=== PATIENT | female | born 1990 | race Caucasian/White ===

== ENCOUNTER 2017-05-27 17:56 | Emergency (ER) | payer MEDICAID ==
[~2017-05-27] VITALS: Ht 167.6 cm; Wt 59.0 kg
[~2017-05-27 17:56] MED LIST: GABA300 PO; THERM PO
[2017-05-27 17:58] VITALS: BP 134/82; PULSE 75; RESP 15; TEMP 97.7; O2SAT 98
--- NOTE | 2017-05-27 18:41 | PD ---
HPI Chief Complaint: Laceration/Skin Injury Time Seen by Provider: 18:41 Travel History International Travel<30 days: No Contact w/Intl Traveler<30days: No Traveled to known affect area: No History of Present Illness HPI 27-year-old male presents emergency Department with complaint of a laceration to the medial right foot just below the first metatarsal after dropping a can of beans on it slicing her foot. Unknown tetanus status. Denies paresthesias, loss of sensation, decreased range of motion, decreased strength to the affected foot. Does not take any medications to alleviate her symptoms. Went to urgent care prior to coming here and was told to come to the emergency department. Bandages is in place and bleeding is controlled. No known allergies. Has no medical complaints. No other modifying factors or associated signs and symptoms. PFSH Past Medical History Autoimmune Disease: No Anxiety: Yes Depression: Yes Heart Rhythm Problems: No Cancer: No Cardiovascular Problems: Yes (ENDOCARDITIS) Cerebrovascular Accident: No Diminished Hearing: No Endocrine: No Genitourinary: Yes Headaches: Yes Immune Disorder: No Musculoskeletal: Yes Neurologic: Yes (CHAIRA 1 MALFORMATION) Psychiatric: Yes (ANXIETY) Reproductive: No Respiratory: No Immunizations Current: Yes Migraines: Yes Seizures: Yes ?: Not Menopausal: No : 4 Para: 1 Miscarriage: 3 Tubal Ligation: Yes Past Surgical History Abdominal Surgery: No Cardiac Surgery: No Ear Surgery: No Endocrine Surgery: No Eye Surgery: No Genitourinary Surgery: No Gynecologic Surgery: No Joint Replacement: No Oral Surgery: No Pacemaker: No Thoracic Surgery: No Other Surgery: Yes (RODS & SCREWS IN RT SHOULDER/RT THUMB) Social History Alcohol Use: No Tobacco Use: Yes Substance Use: Yes ( IV DRUG ABUSE DILAUDID, 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 Medial aspect of right foot just below the first toe with approximately 2-1/2 cm laceration; bleeding controlled. HEAD: Atraumatic. Normocephalic. EYES: Pupils equal and round. No scleral icterus. No injection or drainage. ENT: Mucosa pink and moist. Airway patent. NECK: Trachea midline. CARDIOVASCULAR: Regular rate. RESPIRATORY: No accessory muscle use. GASTROINTESTINAL: Flat. MUSCULOSKELETAL: Right first toe is with full range of motion sensory intact; without tenderness on palpation to the first metatarsal area; without erythema, edema. No obvious deformities. No clubbing. No cyanosis. No edema. NEUROLOGICAL: Awake and alert. Oriented 3. No obvious cranial nerve deficits. Motor grossly within normal limits. Normal speech. PSYCHIATRIC: Appropriate mood and affect; insight and judgment normal. Data Data Last Documented VS Vital Signs Date Time Temp Pulse Resp B/P (MAP) Pulse Ox O2 Delivery O2 Flow Rate FiO2 05/27/17 20:24 78 20 122/74 (90) 99 05/27/17 17:58 97.7 Orders Orders Foot, Complete ([id number]) (05/27/17 18:40) Tetanus/Diphtheria Tox Adult (Tetanus/Di (05/27/17 18:45) Lidocaine 1% Inj (50 Ml) (Xylocaine 1% I (05/27/17 18:45) Ibuprofen (Motrin) (05/27/17 18:45) Shoe Post Op (05/27/17 ) Crutches (05/27/17 20:03) Shoe Cast (05/27/17 ) MDM Medical Decision Making Medical Screen Exam Complete: Yes Emergency Medical Condition: Yes Medical Record Reviewed: Yes Differential Diagnosis Laceration, contusion, abrasion, foot fracture Narrative Course 27-year-old female physical exam consistent with laceration to the right medial foot just below the first toe. Tetanus updated in the ER. Ibuprofen ordered. I will obtain foot x-ray to rule out acute fracture. Right foot x-ray ordered. See BLANCA Bazan's note for laceration repair. Right foot x-ray negative for acute findings. Keflex and ibuprofen prescribed for home. Instructed patient to follow up with primary care provider. Patient verbalizes understanding and agreement with treatment plan. Patient is medically cleared and stable for discharge. Discussed reasons to return to the emergency department. Patient agrees with treatment plan. The patients vital signs are stable and the patient is stable for outpatient follow-up and treatment. Patient discharged home, stable and in no acute distress. Diagnosis Primary Impression: Foot laceration Qualified Codes: S91.311A - Laceration without foreign body, right foot, initial encounter Referrals: [facility] Primary Care Physician Patient Instructions: Care For Your Stitches (ED), General Instructions, Laceration (ED) Departure Forms: Tests/Procedures, Work Release Enter return to work date: May 31, 2017 Additional Instructions: Keep area clean and dry Limit right foot activity to decrease risk of sutures coming undone done; use sling for support and to decrease activity Ibuprofen or Tylenol as directed and as needed for pain and inflammation Ice pack to area as needed to decrease pain Return to the emergency department or follow-up with primary care provider in 7- 10 days for suture removal Follow up with primary care provider within 2-4 days Return to the emergency department immediately with worsening of symptoms, particularly if reddened streaks up or down the affected extremity from the suture site, fever, numbness/tingling in the affected extremity, loss of sensation in the affected extremity, severe swelling of the affected Med/Other Pt SpecificInfo: Prescription(s) given Scripts Ibuprofen (Ibuprofen) 800 Mg Tab 800 MG PO Q6HR Y for PAIN, #30 TAB 0 Refills Prov: Florecita Escalante 05/27/17 Cephalexin (Keflex) 500 Mg Cap 500 MG PO Q8H for Infection for 7 Days, #30 CAP 0 Refills Prov: Florecita Escalante 05/27/17 Disposition: 01 DISCHARGE HOME Condition: Stable Florecita Escalante May 27, 2017 18:41
[2017-05-27] MEDS ORDERED: TETANUS/DIPHTHERIA TOXOID ADULT 0.5 ML VIAL IM ONE (18:45)
[2017-05-27] MEDS ORDERED: LIDOCAINE HCL 1% 50 ML VIAL INFIL ONE (18:45)
[2017-05-27] MEDS ORDERED: IBUPROFEN 800 MG TAB PO ONE (18:45)
[2017-05-27] MEDS ORDERED: IBUP800T23 PO (18:49)
[2017-05-27] MEDS ORDERED: CEPH-460 PO (18:49)
--- NOTE | 2017-05-27 19:55 | RADRPT ---
EXAM DATE/TIME: 05/27/2017 19:21 [place] COMPARISON: No previous studies available for comparison. INDICATIONS : Laceration to right foot at medial portion of foot. MEDICAL HISTORY : None. SURGICAL HISTORY : None. ENCOUNTER: Initial ACUITY: 1 day PAIN SCORE: 0/10 LOCATION: Right foot FINDINGS: Three view examination of the right foot demonstrates no soft tissue swelling, dislocation, or fractu re. The tarsal bones appear intact. The interphalangeal and metatarsophalangeal joints are intact. The calcaneus is intact. Bony mineralization is normal. CONCLUSION: 1. No acute bony abnormality. No radiopaque foreign body. Laceration medial foot. Vinay Pradhan MD on May 27, 2017 at 19:53 Board Certified Radiologist. This report was verified electronically.
--- NOTE | 2017-05-27 20:03 | PD ---
Physical Exam Date Seen by Provider: May 27, 2017 Time Seen by Provider: 20:01 Narrative For full history and physical examination please see previous provider's note. I assumed care of patient at change of shift. Data Data Last Documented VS Vital Signs Date Time Temp Pulse Resp B/P (MAP) Pulse Ox O2 Delivery O2 Flow Rate FiO2 05/27/17 17:58 97.7 75 15 134/82 (99) 98 Orders Orders Foot, Complete ([id number]) (05/27/17 18:40) Tetanus/Diphtheria Tox Adult (Tetanus/Di (05/27/17 18:45) Lidocaine 1% Inj (50 Ml) (Xylocaine 1% I (05/27/17 18:45) Ibuprofen (Motrin) (05/27/17 18:45) MDM Medical Record Reviewed: Yes Supervised Visit with NICK: No Narrative Course X-ray of the left foot is negative for bony abnormality. Please see procedure report for laceration repair. Patient was given a postop shoe and crutches. She was advised that sutures will need to be removed in 10-14 days. She was advised to keep area clean and dry, she was advised to avoid swimming. She was given wound care instructions as well as education on signs and symptoms of infection. Patient verbalized understanding of instructions. Patient stable for discharge. Procedures Procedure Narrative LACERATION LOCATION: Left foot adjacent to first MTP medially LENGTH: 3 cm NUMBER OF STITCHES/NEVILLE: 7 stitches REPAIR: The area of the laceration was prepped with Betadine and sterilely draped. The laceration was infiltrated with 1% lidocaine. The wound was copiously irrigated and explored without evidence of foreign body, tendon injury or neurovascular injury. The wound was closed using 4-0 Prolene. This was a 1 layer repair. A sterile dressing was applied. The patient was advised to keep the dressing clean and dry. Patient tolerated the procedure well. Diagnosis Primary Impression: Foot laceration Qualified Codes: S91.311A - Laceration without foreign body, right foot, initial encounter Referrals: [facility] Primary Care Physician Patient Instructions: General Instructions, Care For Your Stitches (ED), Laceration (ED) Departure Forms: Work Release, Enter return to work date: Tests/Procedures Additional Instruction: Keep area clean and dry Limit right foot activity to decrease risk of sutures coming undone done; use sling for support and to decrease activity Ibuprofen or Tylenol as directed and as needed for pain and inflammation Ice pack to area as needed to decrease pain Return to the emergency department or follow-up with primary care provider in 7- 10 days for suture removal Follow up with primary care provider within 2-4 days Return to the emergency department immediately with worsening of symptoms, particularly if reddened streaks up or down the affected extremity from the suture site, fever, numbness/tingling in the affected extremity, loss of sensation in the affected extremity, severe swelling of the affected Med/Other Pt SpecificInfo: Prescription(s) given Scripts Ibuprofen (Ibuprofen) 800 Mg Tab 800 MG PO Q6HR Y for PAIN, #30 TAB 0 Refills Prov: Florecita Escalante 05/27/17 Cephalexin (Keflex) 500 Mg Cap 500 MG PO Q8H for Infection for 7 Days, #30 CAP 0 Refills Prov: Florecita Escalante 05/27/17 Disposition: 01 DISCHARGE HOME Condition: Stable Jo Ann Willard May 27, 2017 20:03
[2017-05-27 20:24] VITALS: BP 122/74
== END 2017-05-27 20:25 | disposition home or self-care (01) ==
LOC: NEPK 17:56
DX: S91.311A Laceration without foreign body, right foot, initial encounter (principal); I38 Endocarditis, valve unspecified; F41.9 Anxiety disorder, unspecified; F32.9 Major depressive disorder, single episode, unspecified; G93.5 Compression of brain; R56.9 Unspecified convulsions; W22.8XXA Striking against or struck by other objects, initial encounter; Z23 Encounter for immunization; Z72.0 Tobacco use
CPT/HCPCS: 12002; 73630; 90471; 90714; 99283; E0113; L3260

== ENCOUNTER 2018-01-25 23:10 | Inpatient (IN) | END 2018-02-11 12:18 | disposition home health service (06) | DRG 871 | DX: A41.02 Sepsis due to Methicillin resistant Staphylococcus aureus (principal); I26.90 Septic pulmonary embolism without acute cor pulmonale; G93.5 Compression of brain; I76 Septic arterial embolism; I74.9 Embolism and thrombosis of unspecified artery; D69.6 Thrombocytopenia, unspecified; I07.9 Rheumatic tricuspid valve disease, unspecified; L03.114 Cellulitis of left upper limb; N39.0 Urinary tract infection, site not specified; F11.10 Opioid abuse, uncomplicated; F17.210 Nicotine dependence, cigarettes, uncomplicated; M25.512 Pain in left shoulder; B95.62 Methicillin resistant Staphylococcus aureus infection as the cause of diseases classified elsewhere; M79.602 Pain in left arm; R07.89 Other chest pain; R11.2 Nausea with vomiting, unspecified; R53.81 Other malaise; Z86.19 Personal history of other infectious and parasitic diseases ==

== ENCOUNTER 2018-07-06 05:35 | Inpatient (IN) ==
[2018-07-06] MEDS ORDERED: Vancomycin Inj 1,250 MG in Sodium Chlor 0.9% Inj 250 ML IV.SIG ONE (07:24)
[2018-07-06] MEDS ORDERED: Acetaminophen 325 MG Tablet PO ONE (07:24)
[2018-07-06] MEDS ORDERED: Piperacil/Tazo 4.5 GM Premix 4.5 GM/100 ML BAG IV.SIG STA (07:24)
[2018-07-06] MEDS ORDERED: Sod Chloride 0.9% Inj 1,000 ML IV.SIG SCH ×2 (07:30)
--- NOTE | 2018-07-06 08:28 | XR ---
EXAM DATE: 07/06/2018 7:24 AM EDT AGE/SEX: 28 years / Female INDICATIONS: Fever. CLINICAL DATA: This is the patient's initial encounter. Patient reports that signs and symptoms have been present for 1 day and indicates a pain score of 0/10. MEDICAL/SURGICAL HISTORY: None. None. COMPARISON: [facility] – [place], [place]ST SINGLE AP, 02/11/2018. . FINDINGS: Patchy airspace consolidation in the left mid to lower lung zone. The cardiomediastinal contours are unremarkable. Osseous structures are intact. CONCLUSION: 1. Patchy left mid to lower lung zone airspace consolidation concerning for pneumonia history of fev er. Electronically signed by: Tucker Mena MD 07/06/2018 8:27 AM EDT
[2018-07-06 08:56] LABS: Baso % (Auto) 0.4 % (0.0-2.0); Hematocrit 24.9 % (35.0-46.0); Hemoglobin 8.3 gm/dL (11.6-15.3); Lymph # (Auto) 1.1 th/mm3 (1.0-4.8); Lymph % (Auto) 8.9 % (9.0-44.0); Mean Corpuscular HGB Conc 33.2 % (32.0-36.0); Mean Corpuscular Hemoglobin 24.4 pg (27.0-34.0); Mean Corpuscular Volume 73.5 fL (80.0-100.0); Mean Platelet Volume 7.1 fL (7.0-11.0); Mono # (Auto) 0.5 th/mm3 (0.0-0.9); Mono % (Auto) 4.1 % (0.0-8.0); Neut # (Auto) 10.6 th/mm3 (1.8-7.7); Neut % (Auto) 86.6 % (16.0-70.0); Platelet Count 194 th/mm3 (150-450); Red Blood Count 3.39 mil/mm3 (4.00-5.30); Red Cell Distribution Width 16.6 % (11.6-17.2); White Blood Count 12.3 th/mm3 (4.0-11.0)
[2018-07-06 09:12] LABS: Activated Partial Thrombo Time 32.5 sec (24.3-30.1); INR 1.4 Ratio; Prothrombin Time 14.6 sec (9.8-11.6)
[2018-07-06 09:23] LABS: Albumin 2.1 g/dL (3.4-5.0); Anion Gap 13 meq/L (5-15); Aspartate Aminotransferase 25 U/L (15-37); Blood Urea Nitrogen 16 mg/dL (7-18); Calcium 8.1 mg/dL (8.5-10.1); Carbon Dioxide 23.3 meq/L (21.0-32.0); Chloride 95 meq/L (98-107); Glomerular Filtration Rate 66 mL/min (>89); Glucose,Random 107 mg/dL (74-106); Potassium 3.5 meq/L (3.5-5.1); Sodium 131 meq/L (136-145)
[2018-07-06 09:25] LABS: Alanine Aminotransferase 15 U/L (10-53)
[2018-07-06 09:28] LABS: Alkaline Phosphatase 125 U/L (45-117); Total Protein 8.4 g/dL (6.4-8.2)
[2018-07-06 09:37] LABS: Creatine Kinase 23 U/L (26-192)
[2018-07-06] MEDS ORDERED: Ibuprofen 600 MG Tablet PO ONE (09:42)
[2018-07-06 09:50] LABS: Bacteria,Urine Few /hpf; Bilirubin,Urine Negative (Negative); Clarity,Urine Hazy (Clear); Color,Urine Yellow (Yellw/Straw); Glucose,Urine (UA) Negative (Negative); Leukocyte Esterase,Urine Trace (Negative); Mucus,Urine Few /lpf (Occasional); Nitrite,Urine Positive (Negative); Specific Gravity,Urine 1.023 (1.002-1.035); Squamous Epithelial Cell,Urine <1 /hpf (0-5)
--- NOTE | 2018-07-06 10:09 | ED ---
HPI General Chief complaint: Medical Clearance Stated complaint: pain all over Time Seen by Provider: 07/06/18 07:09 Source: patient Mode of arrival: ambulatory Limitations: altered mental status History of Present Illness HPI narrative: Patient is a 28-year-old female who comes in complaining of not feeling well. Patient has history of IV drug abuse, has been admitted with septic pulmonary emboli in the past. She is not providing any history today. Related Data Home Medications Medication Instructions Recorded Confirmed No Known Home Medications 07/06/18 07/06/18 Allergies Allergy/AdvReac Type Severity Reaction Status Date / Time No Known Allergies Allergy Verified 07/06/18 08:55 Review of Systems ROS Unobtainable ROS Unobtainable: unobtainable due to mental status PMFSH Medical History Medical History Endocarditis (Acute) Family History Family History Other Osteoarthritis Social History Social History Substance History: Active Abuse Second Hand Smoke Exposure: Yes Smoking Status: Current every day smoker Tobacco Type: Cigarettes How Often Do You Have a Drink Containing Alcohol: Never Recent Travel [facility] within the Last 8 Weeks: No Recent Out of Country Travel within the Last 8 Weeks: No Immunization History Tetanus Immunization: Unsure Exam Narrative Exam Narrative: GENERAL: Awake and alert, not providing any information. She moans when you speak with her. SKIN: Focused skin assessment warm/dry. Track hart to both arms. No abscess or evidence of cellulitis. HEAD: Atraumatic. Normocephalic. EYES: Pupils equal and round. No scleral icterus. Extraocular movements intact. ENT: Mucous membranes pink and moist. NECK: Trachea midline. No JVD. CARDIOVASCULAR: Regular rate and rhythm. No murmur appreciated. RESPIRATORY: No accessory muscle use. Clear to auscultation. Breath sounds equal bilaterally. GASTROINTESTINAL: Abdomen soft, non-tender, nondistended. MUSCULOSKELETAL: No obvious deformities. No clubbing. No cyanosis. No edema. NEUROLOGICAL: Awake and alert, but does not answer questions. No obvious cranial nerve deficits. Motor grossly within normal limits. Course Initial Documented Vital Signs Temperature 98.9 F 07/06/18 05:39 Pulse Rate 123 H 07/06/18 05:39 Respiratory Rate 20 07/06/18 05:39 Blood Pressure 114/70 07/06/18 05:39 Pulse Oximetry 95 07/06/18 05:39 Last Documented Vital Signs Temperature 97.5 F L 07/06/18 13:38 Pulse Rate 85 07/06/18 13:38 Respiratory Rate 19 07/06/18 13:38 Blood Pressure 93/51 L 07/06/18 13:38 Pulse Oximetry 100 07/06/18 13:38 Medical Decision Making MDM Narrative Medical decision making narrative: Patient is a 28-year-old female who comes in due to feeling unwell. She is really not providing any history. IV established , labs sent. Labs show elevated white blood cell count. Chest x-ray is concerning for pneumonia. Urinalysis is positive for nitrates. Patient given IV fluids, vancomycin, Zosyn. Given Tylenol and ibuprofen. She will be admitted for further management. Medical Screen Exam Complete: Yes Emergency Medical Condition: Yes Differential Diagnosis Differential Diagnosis: Endocarditis versus sepsis versus pneumonia versus UTI Medical Records Medical records reviewed: Yes I reviewed the patient's medical records. Lab Data Lab results reviewed: Yes I reviewed the patient's lab results. Result diagrams: 07/06/18 08:39 07/06/18 08:39 POC Results POC Urine Results Negative Lab Results 07/06/18 07/06/18 07/06/18 Range/Units 08:39 08:39 08:39 WBC 12.3 H (4.0-11.0) th/mm3 RBC 3.39 L (4.00-5.30) mil/mm3 Hgb 8.3 L (11.6-15.3) gm/dL Hct 24.9 L (35.0-46.0) % MCV 73.5 L (80.0-100.0) fL MCH 24.4 L (27.0-34.0) pg MCHC 33.2 (32.0-36.0) % RDW 16.6 (11.6-17.2) % Plt Count 194 (150-450) th/mm3 MPV 7.1 (7.0-11.0) fL Neut % (Auto) 86.6 H (16.0-70.0) % Lymph % (Auto) 8.9 L (9.0-44.0) % Ida % (Auto) 4.1 (0.0-8.0) % Eos % (Auto) 0.0 (0.0-4.0) % Baso % (Auto) 0.4 (0.0-2.0) % Neut # (Auto) 10.6 H (1.8-7.7) th/mm3 Lymph # (Auto) 1.1 (1.0-4.8) th/mm3 Ida # (Auto) 0.5 (0.0-0.9) th/mm3 Eos # (Auto) 0.0 (0.0-0.4) th/mm3 Baso # (Auto) 0.0 (0.0-0.2) th/mm3 WBC Differential . Differential Comment Auto diff final PT 14.6 H (9.8-11.6) sec INR 1.4 Ratio APTT 32.5 H (24.3-30.1) sec Sodium 131 L (136-145) meq/L Potassium 3.5 (3.5-5.1) meq/L Chloride 95 L (98-107) meq/L Carbon Dioxide 23.3 (21.0-32.0) meq/L Anion Gap 13 (5-15) meq/L BUN 16 (7-18) mg/dL Creatinine 1.00 (0.50-1.00) mg/dL Estimated GFR 66 L (>89) mL/min Random Glucose 107 H (74-106) mg/dL Lactic Acid (0.4-2.0) mmol/L Calcium 8.1 L (8.5-10.1) mg/dL Total Bilirubin 0.6 (0.2-1.0) mg/dL AST 25 (15-37) U/L ALT 15 (10-53) U/L Alkaline Phosphatase 125 H (45-117) U/L Total Creatine Kinase 23 L (26-192) U/L Troponin I Less than 0.02 L (0.02-0.05) ng/mL Total Protein 8.4 H (6.4-8.2) g/dL Albumin 2.1 L (3.4-5.0) g/dL Urine Color (Yellw/Straw) Urine Clarity (Clear) Urine pH (5.0-8.5) Ur Specific [place] (1.002-1.035) Urine Protein (Neg-Trace) mg/dL Urine Glucose (UA) (Negative) mg/dL Urine Ketones (Negative) mg/dL Urine Occult Blood (Negative) Urine Nitrate (Negative) Urine Bilirubin (Negative) Urine Urobilinogen (Less than 2) mg/dL Ur Leukocyte Esterase (Negative) Urine RBC (0-3) /hpf Urine WBC (0-5) /hpf Ur Squamous Epith Cells (0-5) /hpf Urine Bacteria (None) /hpf Urine Mucus (Occasional) /lpf Micro UA Comment Ur Microscopic Review Urine Culture Comments 07/06/18 07/06/18 Range/Units 08:39 09:25 WBC (4.0-11.0) th/mm3 RBC (4.00-5.30) mil/mm3 Hgb (11.6-15.3) gm/dL Hct (35.0-46.0) % MCV (80.0-100.0) fL MCH (27.0-34.0) pg MCHC (32.0-36.0) % RDW (11.6-17.2) % Plt Count (150-450) th/mm3 MPV (7.0-11.0) fL Neut % (Auto) (16.0-70.0) % Lymph % (Auto) (9.0-44.0) % Ida % (Auto) (0.0-8.0) % Eos % (Auto) (0.0-4.0) % Baso % (Auto) (0.0-2.0) % Neut # (Auto) (1.8-7.7) th/mm3 Lymph # (Auto) (1.0-4.8) th/mm3 Ida # (Auto) (0.0-0.9) th/mm3 Eos # (Auto) (0.0-0.4) th/mm3 Baso # (Auto) (0.0-0.2) th/mm3 WBC Differential Differential Comment PT (9.8-11.6) sec INR Ratio APTT (24.3-30.1) sec Sodium (136-145) meq/L Potassium (3.5-5.1) meq/L Chloride (98-107) meq/L Carbon Dioxide (21.0-32.0) meq/L Anion Gap (5-15) meq/L BUN (7-18) mg/dL Creatinine (0.50-1.00) mg/dL Estimated GFR (>89) mL/min Random Glucose (74-106) mg/dL Lactic Acid 1.0 (0.4-2.0) mmol/L Calcium (8.5-10.1) mg/dL Total Bilirubin (0.2-1.0) mg/dL AST (15-37) U/L ALT (10-53) U/L Alkaline Phosphatase (45-117) U/L Total Creatine Kinase (26-192) U/L Troponin I (0.02-0.05) ng/mL Total Protein (6.4-8.2) g/dL Albumin (3.4-5.0) g/dL Urine Color Yellow (Yellw/Straw) Urine Clarity Hazy H (Clear) Urine pH 5.0 (5.0-8.5) Ur Specific [place] 1.023 (1.002-1.035) Urine Protein 30 H (Neg-Trace) mg/dL Urine Glucose (UA) Negative (Negative) mg/dL Urine Ketones Negative (Negative) mg/dL Urine Occult Blood Small H (Negative) Urine Nitrate Positive H (Negative) Urine Bilirubin Negative (Negative) Urine Urobilinogen Less than 2 (Less than 2) mg/dL Ur Leukocyte Esterase Trace H (Negative) Urine RBC 1 (0-3) /hpf Urine WBC 25 H (0-5) /hpf Ur Squamous Epith Cells <1 (0-5) /hpf Urine Bacteria Few H (None) /hpf Urine Mucus Few H (Occasional) /lpf Micro UA Comment Culture indicated Ur Microscopic Review Not Reportable Urine Culture Comments Culture indicated Imaging Data Radiologist's impression: Chest X-Ray 07/06/18 07:24 CONCLUSION: 1. Patchy left mid to lower lung zone airspace consolidation concerning for pneumonia history of fever. Discharge Plan Discharge Disposition Patient Disposition: 30 Still Patient Discharge Condition Condition: Stable Discharge Details Diagnosis: Sepsis, Urinary tract infection, Community acquired pneumonia Physicians Team ED Provider: Neetu Mcgill Primary Care Provider: Primary Care Ann Arciniega Attending Provider: Keenan Manley Discharge Interventions Interventions: ED Discharge Assessment Last Done: 07/06/18 12:50 Vital Signs Last Done: 07/06/18 10:38 Status ED Status: Left Department Discharge Information Discharge Date/Time: 07/06/18 12:56
[2018-07-06] MEDS ORDERED: Vancomycin Consult Pharmacy OTHER PRN (11:04)
[2018-07-06] MEDS: Sod Chloride 0.9% Inj 1,000 ML IV.CONT SCH ×2 (12:14→22:11)
[2018-07-06] MEDS: Enoxaparin Inj 40 MG/0.4 ML Syringe SQ SCH (12:15)
--- NOTE | 2018-07-06 12:22 | P.HPIM ---
History of Present Illness Primary Care Physician: No Primary Care Physician History of Present Illness: Mrs. Rapp is a 28-year-old female. She has a past history of IV drug abuse and a previous history of infective endocarditis. She came in secondary to pain in her joints. When I see her in the ER she is lethargic and provides no significant history. She is arousable and has a gag reflex. She has been found to have a urinary tract infection and pneumonia. She meets sepsis criteria. Due to her history of IV drug abuse and prior history of infective endocarditis, Suspicion for infective endocarditis should be present. No other complaints when seen. - Diagnosis (1) Sepsis (2) Urinary tract infection (3) Community acquired pneumonia Inpatient Certification: I certify that the inpatient services were ordered in accordance with Medicare regulations governing the order. This includes certification that hospital inpatient services are reasonable and necessary and in the case of services not specified as inpatient-only under 42 CFR 419.22(n), that they are appropriately provided as inpatient services in accordance to with the 2-midnight benchmark under 43 CFR 412.3(e) Estimated Total Length of Stay (Days): 3 Plans for Post Hospital Care: Home Review of Systems unobtainable due to mental condition, unobtainable due to mental status PMFSH - History History Provided By: Patient - Medical History Medical History: Medical History (Last Updated 07/06/18 @ 05:38 by Josselin Baker RN) Endocarditis - Family History Family History: Family History (Last Updated 07/06/18 @ 12:19 by Keenan Manley MD) Other Osteoarthritis - Tobacco History Tobacco Use In Past 30 Days: Yes Smoking Status: Current every day smoker Tobacco Type: Cigarettes - Alcohol History How Often Do You Have a Drink Containing Alcohol: Never - Travel History Recent Travel in the [place] Within the Last 8 Weeks: No Recent Travel Out of the Country Within the Last 8 Weeks: No - Immunization History Tetanus Immunization: Unsure Medications and Allergies Active Medications: Active Medications Acetaminophen (Tylenol) 500 mg PO Q6H PRN PRN Reason: PAIN 1-10 AND/OR FEVER >101F Al Hydroxide/Mg Hydroxide (Milk Of Magnesia Liq) 30 ml PO Q12H PRN PRN Reason: Mild Constipation Clonidine HCl (Catapres) 0.1 mg PO Q6H PRN PRN Reason: opioid withdraw Enoxaparin Sodium (Lovenox Inj) 40 mg SQ Q24H JASSON Last Admin: 07/06/18 12:15 Dose: 40 mg Sodium Chloride (Ns Inj) 1,000 mls @ 0 mls/hr IV.SIG .Q0M JASSON Last Infusion: 07/06/18 09:13 Dose: Infused Sodium Chloride (Ns Inj) 1,000 mls @ 0 mls/hr IV.SIG .Q0M JASSON Last Infusion: 07/06/18 09:45 Dose: Infused Sodium Chloride (Ns Inj) 1,000 mls @ 100 mls/hr IV.CONT .Q10H JASSON Last Admin: 07/06/18 12:14 Dose: 100 mls/hr Vancomycin/Sodium Chloride (Vancomycin Inj) 1 gm in 200 mls @ 200 mls/hr IV.SIG Q12H JASSON Piperacillin/Tazobactam/Dextrose (Zosyn 3.375 Gm Premix) 50 mls @ 100 mls/hr IV.SIG Q8H JASSON Lactobacillus Acidophilus (Lactinex) 1 tab PO TID JASSON Ondansetron HCl (Zofran Inj) 4 mg IV.PUSH Q6H PRN PRN Reason: NAUSEA OR VOMITING Pharmacy Profile Note (Vancomycin Consult Pharmacy) 1 each OTHER UNSCH PRN PRN Reason: Pharmacy to dose Allergies Allergy/AdvReac Type Severity Reaction Status Date / Time No Known Allergies Allergy Verified 07/06/18 08:55 Home Medications Medication Instructions Recorded Confirmed Type No Known Home Medications 07/06/18 07/06/18 History Exam Vital signs: Vital Signs 07/06/18 05:39 07/06/18 05:56 07/06/18 08:17 Temperature 98.9 F 99.0 F 100.4 F H Pulse Rate 123 H 117 H Respiratory Rate 20 20 Blood Pressure 114/70 124/62 Pulse Oximetry 95 100 07/06/18 08:55 07/06/18 08:56 07/06/18 09:16 Temperature 101.2 F H Pulse Rate 117 H 108 H Respiratory Rate 24 22 Blood Pressure 127/67 141/69 H Pulse Oximetry 98 98 98 07/06/18 10:38 Temperature 99.3 F Pulse Rate 95 H Respiratory Rate 24 Blood Pressure 123/60 Pulse Oximetry 98 Intake & Output 07/05/18 07/06/18 07/06/18 18:59 06:59 18:59 Intake Total 2362.5 / 2362.5 Balance 2362.5 / 2362.5 Weight 68.039 kg Intake: IV 2362.5 / 2362.5 Zosyn 4.5 GM Premix 4.5 gm In 100 / 100 100 ml @ 200 mls/hr IV.SIG STAT STA Rx#:[id number] NS Inj 1,000 ML @ Wide Open IV. 1999 / 1999 SIG .Q0M JASSON Rx#:[id number] Vancomycin Inj 1,250 MG In NS 262.5 / 262.5 Inj 250 ML @ 250 mls/hr IV.SIG ONCE ONE Rx#:[id number] Narrative: GENERAL: NAD, A&Ox0 HEAD: Normocephalic. NECK: Supple, trachea midline. No lymphadenopathy. EYES: No scleral icterus. No injection or drainage. CARDIOVASCULAR: Regular rate and rhythm without murmurs, gallops, or rubs. RESPIRATORY: Breath sounds equal bilaterally. No accessory muscle use. GASTROINTESTINAL: Abdomen soft, non-tender, nondistended. MUSCULOSKELETAL: No cyanosis, or edema. SKIN: Warm and dry. Possible track hart on feet. NEURO: No focal neurological deficits. Results - Labs CBC & Chem 7: 07/06/18 08:39 07/06/18 08:39 Labs: Short CBC 07/06/18 Range/Units 08:39 WBC 12.3 H (4.0-11.0) th/mm3 Hgb 8.3 L (11.6-15.3) gm/dL Hct 24.9 L (35.0-46.0) % Plt Count 194 (150-450) th/mm3 BMP 07/06/18 08:39 Sodium 131 L Potassium 3.5 Chloride 95 L Carbon Dioxide 23.3 BUN 16 Creatinine 1.00 Calcium 8.1 L Cardiac Enzymes 07/06/18 Range/Units 08:39 Total Creatine Kinase 23 L (26-192) U/L Troponin I Less than 0.02 L (0.02-0.05) ng/mL Liver Function 07/06/18 Range/Units 08:39 Total Bilirubin 0.6 (0.2-1.0) mg/dL AST 25 (15-37) U/L ALT 15 (10-53) U/L Alkaline Phosphatase 125 H (45-117) U/L Albumin 2.1 L (3.4-5.0) g/dL Urine 07/06/18 Range/Units 09:25 Urine Color Yellow (Yellw/Straw) Urine Clarity Hazy H (Clear) Urine pH 5.0 (5.0-8.5) Ur Specific [place] 1.023 (1.002-1.035) Urine Protein 30 H (Neg-Trace) mg/dL Urine Glucose (UA) Negative (Negative) mg/dL - Imaging Impressions Chest X-Ray 07/06/18 07:24 CONCLUSION: 1. Patchy left mid to lower lung zone airspace consolidation concerning for pneumonia history of fever. Caprini VTE Risk Assessment Caprini VTE Risk Assessment: Moderate/High Risk (score >= 2) Caprini Risk Assessment Model: Point Value = 1 Point Value = 2 Point Value = 3 Point Value = 5 Age 41-60 Minor surgery BMI > 25 kg/m2 Swollen legs Varicose veins or History of unexplained or recurrent spontaneous Oral contraceptives or hormone replacement Sepsis (< 1 month) Serious lung disease, including pneumonia (< 1 month) Abnormal pulmonary function Acute myocardial infarction Congestive heart failure (< 1 month) History of inflammatory bowel disease Medical patient at bed rest Age 61-74 Arthroscopic surgery Major open surgery (> 45 min) Laparoscopic surgery (> 45 min) Malignancy Confined to bed (> 72 hours) Immobilizing plaster cast Central venous access Age >= 75 History of VTE Family history of VTE Factor V Leiden Prothrombin [id number] Lupus anticoagulant Anticardiolipin antibodies Elevated serum homocysteine Heparin-induced thrombocytopenia Other congenital or acquired thrombophilia Stroke (< 1 month) Elective arthroplasty Hip, pelvis, or leg fracture Acute spinal cord injury (< 1 month) Prophylaxis Regimen: Total Risk Factor Score Risk Level Prophylaxis Regimen 0-1 Low Early ambulation 2 Moderate Order ONE of the following: *Sequential Compression Device (SCD) *Heparin 5000 units SQ BID 3-4 Higher Order ONE of the following medications: *Heparin 5000 units SQ TID *Enoxaparin/Lovenox 40 mg SQ daily (WT < 150 kg, CrCl > 30 mL/min) *Enoxaparin/Lovenox 30 mg SQ daily (WT < 150 kg, CrCl > 10-29 mL/min) *Enoxaparin/Lovenox 30 mg SQ BID (WT < 150 kg, CrCl > 30 mL/min) AND/OR *Sequential Compression Device (SCD) 5 or more Highest Order ONE of the following medications: *Heparin 5000 units SQ TID (Preferred with Epidurals) *Enoxaparin/Lovenox 40 mg SQ daily (WT < 150 kg, CrCl > 30 mL/min) *Enoxaparin/Lovenox 30 mg SQ daily (WT < 150 kg, CrCl > 10-29 mL/min) *Enoxaparin/Lovenox 30 mg SQ BID (WT < 150 kg, CrCl > 30 mL/min) AND *Sequential Compression Device (SCD) Assessment and Plan - Assessment (1) Sepsis Code(s): A41.9 - Sepsis, unspecified organism Status: Acute (2) Urinary tract infection Code(s): N39.0 - Urinary tract infection, site not specified Status: Acute (3) Community acquired pneumonia Code(s): J18.9 - Pneumonia, unspecified organism Status: Acute - Plan 28-year-old female admitted secondary to community acquired pneumonia, UTI, and sepsis with a history of IV drug abuse and infective endocarditis Sepsis IV hydration Follow vital signs closely Telemetry Treat infections as below Urinary tract infection Community acquired pneumonia Vancomycin Zosyn Follow cultures Probiotics History of infective endocarditis History of IV drug abuse Monitor for withdrawals Clonidine as needed for opioid withdrawal Echocardiogram to screen for infective endocarditis as a source of infection/ sepsis Toxic/Metabolic Encephalopathy Likely related to drug abuse May be related to sepsis Treat infections Follow clinically DVT prophylaxis Lovenox
[2018-07-06] MEDS: Lactobacillus Acidophilus/L. Spores Tablet PO SCH ×2 (14:13→17:39)
--- NOTE | 2018-07-06 15:33 | ECHRPT ---
Indication: SEPSIS CONCLUSIONS Findings consistent with vegetation on the tricuspid valve. There is moderate to severe tricuspid valve regurgitation. The left ventricular systolic function is hyperdynamic with an estimated ejection fraction in the ra nge of 65- 70%. Normal left ventricular size. Wall thickness is normal. No regional wall motion abnormalities are present. Mild thickening of the tricuspid valve leaflets. Trivial pulmonary valve regurgitation. BP: / HR: Rhythm: Sinus MEASUREMENTS (Male / Female) Normal Values Technical Quality:Good 2D ECHO LV Diastolic Diameter PLAX 4.2 cm 4.2 - 5.9 / 3.9 - 5.3 cm LV Systolic Diameter PLAX 2.5 cm IVS Diastolic Thickness 0.9 cm 0.6 - 1.0 / 0.6 - 0.9 cm LVPW Diastolic Thickness 1.0 cm 0.6 - 1.0 / 0.6 - 0.9 cm LV Relative Wall Thickness 0.4 LVOT Diameter 2.0 cm LA Systolic Diameter LX 2.6 cm 3.0 - 4.0 / 2.7 - 3.8 cm LV Ejection Fraction MOD 4C 62.5 % LV Ejection Fraction 4C AL 64.0 % M-MODE Aortic Root Diameter MM 1.9 cm LA Systolic Diameter MM 3.1 cm LA Ao Ratio MM 1.6 AV Cusp Separation MM 2.0 cm DOPPLER AV Peak Velocity 134.0 cm/s AV Peak Gradient 7.2 mmHg LVOT Peak Velocity 95.3 cm/s LVOT Peak Gradient 3.6 mmHg AV Area Cont Eq pk 2.2 cm MV Area PHT 4.4 cm Mitral E Point Velocity 72.1 cm/s Mitral A Point Velocity 57.8 cm/s Mitral E to A Ratio 1.2 TR Peak Velocity 257.0 cm/s TR Peak Gradient 26.4 mmHg Right Atrial Pressure 10.0 mmHg Pulmonary Artery Systolic Pressu 36.4 mmHg Right Ventricular Systolic Press 36.4 mmHg PV Peak Velocity 103.0 cm/s PV Peak Gradient 4.2 mmHg FINDINGS LEFT VENTRICLE The left ventricular systolic function is hyperdynamic with an estimated ejection fraction in the ra nge of 65- 70%. Normal left ventricular size. Wall thickness is normal. No regional wall motion abnormalities are present. RIGHT VENTRICLE Normal right ventricular size and systolic function. LEFT ATRIUM The left atrial size is normal. RIGHT ATRIUM The right atrial size is normal. ATRIAL SEPTUM Normal atrial septal thickness without atrial level shunting by limited color doppler interrogation. AORTA The aortic root and proximal ascending aorta are normal in size on limited imaging. MITRAL VALVE Structurally normal mitral valve. No mitral valve stenosis or regurgitation. AORTIC VALVE Trileaflet aortic valve. No aortic valve stenosis or regurgitation. TRICUSPID VALVE Mild thickening of the tricuspid valve leaflets. There is moderate to severe tricuspid valve regurgitation. Findings consistent with vegetation on the tricuspid valve. PULMONARY VALVE Trivial pulmonary valve regurgitation. VESSELS The inferior vena cava is normal in size. PERICARDIUM No pericardial effusion. Jose E Bazan (Electronically Signed) Final Date:06 July 2018 15:32
[2018-07-06] MEDS: Piperacil/Tazo 3.375 GM Premix 50 ML IV.SIG SCH (15:40)
[2018-07-06] MEDS ORDERED: Morphine Sulfate 15 MG SR Tablet PO ONE (16:45)
[2018-07-06] MEDS ORDERED: Vancomycin Inj 1 GM/200 ML PIGGYBACK IV.SIG SCH (20:00)
[2018-07-06] MEDS: Morphine Sulfate 15 MG SR Tablet PO SCH (22:00)
[2018-07-06] MEDS: Vancomycin Inj 1,000 MG in Sodium Chlor 0.9% Inj 250 ML IV.SIG SCH (22:12)
[2018-07-07] MEDS: Piperacil/Tazo 3.375 GM Premix 50 ML IV.SIG SCH ×3 (00:26→16:30)
[2018-07-07] MEDS: Morphine Sulfate 15 MG SR Tablet PO SCH ×3 (06:12→22:55)
[2018-07-07] MEDS: Sod Chloride 0.9% Inj 1,000 ML IV.CONT SCH ×2 (06:15→16:31)
[2018-07-07] MEDS: Lactobacillus Acidophilus/L. Spores Tablet PO SCH ×4 (09:04→17:35)
[2018-07-07] MEDS: Vancomycin Inj 1,000 MG in Sodium Chlor 0.9% Inj 250 ML IV.SIG SCH ×2 (09:05→22:53)
[2018-07-07 09:10] LABS: Baso % (Auto) 0.1 % (0.0-2.0); Eos % (Auto) 0.3 % (0.0-4.0); Hematocrit 26.9 % (35.0-46.0); Hemoglobin 8.5 gm/dL (11.6-15.3); Lymph # (Auto) 0.8 th/mm3 (1.0-4.8); Lymph % (Auto) 12.9 % (9.0-44.0); Mean Corpuscular HGB Conc 31.7 % (32.0-36.0); Mean Corpuscular Hemoglobin 24.2 pg (27.0-34.0); Mean Corpuscular Volume 76.4 fL (80.0-100.0); Mean Platelet Volume 7.1 fL (7.0-11.0); Mono # (Auto) 0.3 th/mm3 (0.0-0.9); Mono % (Auto) 4.2 % (0.0-8.0); Neut # (Auto) 5.2 th/mm3 (1.8-7.7); Neut % (Auto) 82.5 % (16.0-70.0); Platelet Count 128 th/mm3 (150-450); Red Blood Count 3.52 mil/mm3 (4.00-5.30); Red Cell Distribution Width 16.2 % (11.6-17.2); White Blood Count 6.3 th/mm3 (4.0-11.0)
[2018-07-07 09:35] LABS: Alanine Aminotransferase 18 U/L (10-53); Albumin 1.8 g/dL (3.4-5.0); Alkaline Phosphatase 103 U/L (45-117); Anion Gap 9 meq/L (5-15); Aspartate Aminotransferase 40 U/L (15-37); Blood Urea Nitrogen 13 mg/dL (7-18); Carbon Dioxide 22.1 meq/L (21.0-32.0); Chloride 106 meq/L (98-107); Glomerular Filtration Rate Greater Than 89 mL/min (>89); Glucose,Random 112 mg/dL (74-106); Potassium 3.6 meq/L (3.5-5.1); Sodium 137 meq/L (136-145); Total Protein 7.2 g/dL (6.4-8.2)
--- NOTE | 2018-07-07 10:09 | P.PNIM ---
Subjective Interval history: The patient was uncomfortable. She was complaining of chest pain with deep breaths. She has been sweating a lot. She feels like her withdrawal symptoms are not controlled. Physical Exam Vital signs: Vital Signs 07/06/18 10:38 07/06/18 12:18 07/06/18 13:38 Temperature 99.3 F 97.5 F L Pulse Rate 95 H 85 85 Respiratory Rate 24 16 19 Blood Pressure 123/60 114/60 93/51 L Pulse Oximetry 98 99 100 07/06/18 16:00 07/06/18 16:58 07/06/18 19:50 Temperature 97.2 F L Pulse Rate 83 76 77 Respiratory Rate 19 Blood Pressure 94/52 L 96/57 L Pulse Oximetry 99 100 07/06/18 20:00 07/06/18 22:18 07/06/18 23:50 Temperature 97.2 F L Pulse Rate 72 67 Respiratory Rate 20 Blood Pressure 95/52 L 91/54 L Pulse Oximetry 100 07/07/18 04:00 07/07/18 08:00 Temperature 98.9 F 99.1 F Pulse Rate 87 93 H Respiratory Rate 20 20 Blood Pressure 93/54 L 99/52 L Pulse Oximetry 98 98 Intake & Output 07/06/18 07/07/18 07/07/18 18:59 06:59 18:59 Intake Total 3012.5 / 3012.5 2200 / 2200 Output Total 700 / 700 Balance 2312.5 / 2312.5 2200 / 2200 Intake: IV 2412.5 / 2412.5 2200 / 2200 NS Inj 1,000 ML @ 100 mls/hr IV 1900 / 1900 .CONT .Q10H JASSON Rx#:[id number] Zosyn 3.375 GM Premix 50 ML @ 50 / 50 50 / 50 100 mls/hr IV.SIG Q8H JASSON Rx#: [id number] Zosyn 4.5 GM Premix 4.5 gm In 100 / 100 100 ml @ 200 mls/hr IV.SIG STAT STA Rx#:[id number] NS Inj 1,000 ML @ Wide Open IV. 1999 / 1999 SIG .Q0M JASSON Rx#:[id number] Vancomycin Inj 1,000 MG In NS 250 / 250 Inj 250 ML @ 250 mls/hr IV.SIG Q12H JASSON Rx#:[id number] Vancomycin Inj 1,250 MG In NS 262.5 / 262.5 Inj 250 ML @ 250 mls/hr IV.SIG ONCE ONE Rx#:[id number] Oral 600 / 600 Output: Urine 700 / 700 Other: # Voids 3 Narrative: GENERAL: Uncomfortable. HEAD: Normocephalic. NECK: Supple, trachea midline. No lymphadenopathy. EYES: No scleral icterus. No injection or drainage. CARDIOVASCULAR: Regular rate and rhythm without murmurs, gallops, or rubs. RESPIRATORY: Breath sounds equal bilaterally. No accessory muscle use. GASTROINTESTINAL: Abdomen soft, non-tender, nondistended. MUSCULOSKELETAL: No cyanosis, or edema. SKIN: Warm and dry. NEURO: No focal neurological deficits. PSYCH: Anxious. Results - Labs CBC & Chem 7: 07/07/18 08:18 07/07/18 08:18 Laboratory Results - last 24 hr 07/07/18 07/07/18 08:18 08:18 WBC 6.3 RBC 3.52 L Hgb 8.5 L Hct 26.9 L MCV 76.4 L MCH 24.2 L MCHC 31.7 L RDW 16.2 Plt Count 128 L D MPV 7.1 Neut % (Auto) 82.5 H Lymph % (Auto) 12.9 [place] % (Auto) 4.2 Eos % (Auto) 0.3 Baso % (Auto) 0.1 Neut # (Auto) 5.2 Lymph # (Auto) 0.8 L [place] # (Auto) 0.3 Eos # (Auto) 0.0 Baso # (Auto) 0.0 WBC Differential . Differential Comment Auto diff final Sodium 137 Potassium 3.6 Chloride 106 D Carbon Dioxide 22.1 Anion Gap 9 BUN 13 Creatinine 0.69 Estimated GFR Greater than 89 Random Glucose 112 H Calcium 8.0 L Total Bilirubin 0.3 AST 40 H ALT 18 Alkaline Phosphatase 103 Total Protein 7.2 D Albumin 1.8 L Assessment and Plan - Assessment (1) Sepsis Code(s): A41.9 - Sepsis, unspecified organism Status: Acute (2) Urinary tract infection Code(s): N39.0 - Urinary tract infection, site not specified Status: Acute (3) Community acquired pneumonia Code(s): J18.9 - Pneumonia, unspecified organism Status: Acute - Plan 28-year-old female admitted secondary to community acquired pneumonia, UTI, and sepsis with a history of IV drug abuse and infective endocarditis Urinary tract infection/ Community acquired pneumonia/ Sepsis/ Hypotension CXR indicative of pneumonia and UA indicative of UTI. -continue vancomycin and Zosyn. -Follow cultures. -IVFs. -telemetry. Infective endocarditis The pt was recently treated for tricuspid endocarditis but did not complete treatment as she had her PICC line removed. Repeat echo demonstrates endocarditis. -infectious disease consult pending. -continue antibiotics as above. Opioid withdrawal The pt injects heroin. -unable to give clonidine s/t hypotension. -continue long acting morphine. -add IV morphine for pleuritic chest pain as well as acute withdrawal symptoms. Wean off when improved. DVT prophylaxis: Lovenox (1) Sepsis Qualifiers: Sepsis type: sepsis due to unspecified organism Qualified Code(s): A41.9 - Sepsis, unspecified organism (2) Urinary tract infection Qualifiers: Urinary tract infection type: acute cystitis Hematuria presence: without hematuria Qualified Code(s): N30.00 - Acute cystitis without hematuria (3) Community acquired pneumonia Qualifiers: Laterality: left Lung location: lower lobe of lung Qualified Code(s): J18.1 - Lobar pneumonia, unspecified organism
[2018-07-07] MEDS: Morphine Sulfate Inj 2 MG/ML Vial IV.PUSH PRN ×3 (11:06→21:03)
--- NOTE | 2018-07-07 12:32 | MB ---
cc: Guillaume Lewis MD, Daniel C MD DATE: 07/07/2018 REQUESTING PHYSICIAN: Keenan Manley MD REASON FOR CONSULTATION: Infective endocarditis. HISTORY OF PRESENT ILLNESS: This is a 28-year-old white female with the use of IV drugs. The patient has had multiple bouts of endocarditis in the past involving the tricuspid valve. She was last treated for endocarditis in January and February 2018. She was sent home on IV antibiotics to continue outpatient treatment for MRSA endocarditis. The patient states that after she went home, she only received approximately 10 doses of the IV antibiotics, which was being administered by a family member. She states that the family member was no longer interested in giving her the medications and therefore, she was not getting it. The PICC line which was placed for the outpatient IV antibiotics was removed because she was not compliant with the treatment. The patient states that she went back to using IV drugs in the form of heroin and she last used IV heroin 2 days ago. She said that she has been sick for some weeks and mostly lying in bed. However, over the past couple of weeks, she noted that she was feeling more sick and that she was having a fever but that she was trying to find a good time to come to the emergency room to be evaluated. She states that she lives alone in her home and she was trying to get her home in order before she came for evaluation of the fevers. She complains of generalized weakness and also notes that she has chest pain across the chest. She has had a history of pulmonary embolism in the past. She was noted to have altered mental status yesterday in the emergency department, but her mental status appears clearer except that she says she is forgetting things quite a bit. The patient had a temperature of 101.2 degrees in the emergency department. Blood cultures were taken and all 4 bottles have gram-positive cocci. A chest x-ray was performed yesterday and shows a patchy left mid to lower lung zone airspace consolidation concerning for pneumonia. The patient also has an increased white cell count in the urine. Urine culture has no growth in 24 hours. The patient is not coughing or producing sputum. She denies headache, nausea, vomiting, back pain, dysuria or diarrhea. A 2-D echocardiogram reveals moderate to severe tricuspid valve regurgitation and mild thickening of the tricuspid valve leaflets and findings consistent with vegetation on the tricuspid valve. PAST MEDICAL HISTORY: Tricuspid valve endocarditis. Last episode was in January 2018. History of septic pulmonary emboli. ALLERGIES: NO KNOWN DRUG ALLERGIES. MEDICATIONS: 1. Vancomycin. 2. Piperacillin/tazobactam. 3. Morphine sulfate p.r.n. 4. Lovenox. 5. Lactinex. SOCIAL HISTORY: Positive tobacco use. No alcohol. IV drug use in the form of heroin. FAMILY HISTORY: Noncontributory. REVIEW OF SYSTEMS: Pertinents are mentioned in the history of present illness. All systems have been reviewed and are otherwise negative. PHYSICAL EXAMINATION: GENERAL: She is a thin female who she looks chronically ill. She is awake and alert. VITAL SIGNS: Temperature 99.1, BP 90/52, respirations 20, heart rate 93. HEENT: Head is atraumatic. Extraocular movements grossly intact. Pupils are reactive to light. No icterus. Oropharynx with moist mucosa. No visible lesions. NECK: Supple without adenopathy or swelling. LUNGS: Rhonchi at the left base. HEART: Regular S1 and S2. A 3/6 systolic ejection murmur at the left sternal border. ABDOMEN: Soft. Bowel sounds present. Nontender. RECTAL: Not performed. EXTREMITIES: No clubbing, cyanosis or edema. SKIN: Track hart visible on the lower extremities. No clubbing, cyanosis or edema in lower extremities. No diffuse rash. NEUROLOGIC: No gross focal finding. PSYCHIATRIC: The patient is calm and cooperative. LABORATORY DATA: WBC 6.3, platelets 128, hemoglobin 8.5, 82% neutrophils. Creatinine 0.69, BUN 13, sodium 137, AST 40, ALT 18, alkaline phosphatase 103. IMPRESSION: Recurrent endocarditis in a patient with intravenous drug use. Current blood cultures have gram-positive cocci. RECOMMENDATIONS: 1. Continue vancomycin. 2. Monitor blood cultures for identity and sensitivity of the bacteria on the blood culture. 3. Continue piperacillin/tazobactam for pneumonia since patient has pneumonia based on chest x-ray findings. 4. Monitor temperature. 5. Follow clinical status. 6. The patient definitely will need another course of treatment for endocarditis. She is at very high risk for continued deterioration if she is not treated completely for endocarditis and therefore, I do not think she is a candidate for outpatient treatment of endocarditis. The patient is noncompliant and has been noncompliant and hence having recurrence of endocarditis. Thank you for this consultation. The patient's progress will be monitored. MD ROSALES Sharif/alicja , 11:58 AM , 12:14 PM
[2018-07-07] MEDS: Enoxaparin Inj 40 MG/0.4 ML Syringe SQ SCH (13:52)
--- NOTE | 2018-07-07 16:26 | ECG ---
Date Performed: 07/06/2018 Time Performed: 08:10:10 PTAGE: 28 years EKG: SINUS TACHYCARDIA POSSIBLE LEFT ATRIAL ENLARGEMENT NONSPECIFIC T-WAVE ABNORMALITY Since pre vious tracing, no significant change noted ABNORMAL RHYTHM ECG PREVIOUS TRACING : 02/04/2018 23.38.14 DOCTOR: Renard Lindsey Interpretating Date/Time 07/07/2018 16:25:50
[2018-07-07] MEDS ORDERED: Pharmacy Ordered Lab Info OTHER ONE (20:45)
[2018-07-07] MEDS: Acetaminophen 500 MG Tablet PO PRN (21:03)
[2018-07-08 00:03] LABS: % Iron Saturation 7.4 % (20-50); Folate 10.7 ng/mL (3.1-17.5); Vancomycin,Trough 4.7 mcg/mL (5.0-10.0)
[2018-07-08] MEDS: Piperacil/Tazo 3.375 GM Premix 50 ML IV.SIG SCH ×4 (00:40→20:23)
[2018-07-08] MEDS: Sod Chloride 0.9% Inj 1,000 ML IV.CONT SCH ×2 (02:50→14:23)
[2018-07-08] MEDS: Morphine Sulfate Inj 2 MG/ML Vial IV.PUSH PRN ×4 (05:10→21:44)
[2018-07-08] MEDS: Morphine Sulfate 15 MG SR Tablet PO SCH ×2 (06:10→14:40)
[2018-07-08 07:57] LABS: Baso % (Auto) 0.5 % (0.0-2.0); Eos % (Auto) 0.3 % (0.0-4.0); Hematocrit 22.3 % (35.0-46.0); Lymph # (Auto) 1.2 th/mm3 (1.0-4.8); Lymph % (Auto) 16.3 % (9.0-44.0); Mean Corpuscular HGB Conc 30.5 % (32.0-36.0); Mean Corpuscular Hemoglobin 23.4 pg (27.0-34.0); Mean Corpuscular Volume 76.6 fL (80.0-100.0); Mean Platelet Volume 7.3 fL (7.0-11.0); Mono # (Auto) 0.5 th/mm3 (0.0-0.9); Mono % (Auto) 6.4 % (0.0-8.0); Neut # (Auto) 5.5 th/mm3 (1.8-7.7); Neut % (Auto) 76.5 % (16.0-70.0); Platelet Count 143 th/mm3 (150-450); Red Blood Count 2.91 mil/mm3 (4.00-5.30); Red Cell Distribution Width 16.1 % (11.6-17.2); White Blood Count 7.2 th/mm3 (4.0-11.0)
[2018-07-08 07:59] LABS: Hemoglobin 6.8 gm/dL (11.6-15.3)
[2018-07-08] MEDS: Lactobacillus Acidophilus/L. Spores Tablet PO SCH ×3 (08:40→17:22)
[2018-07-08] MEDS: Vancomycin Inj 1,000 MG in Sodium Chlor 0.9% Inj 250 ML IV.SIG SCH (09:30)
[2018-07-08] MEDS: Acetaminophen 500 MG Tablet PO PRN ×2 (09:47→20:23)
[2018-07-08] MEDS ORDERED: Sodium Chlor 0.9% Inj 250 ML IV.SIG ONE (10:00)
[2018-07-08] MEDS: Enoxaparin Inj 40 MG/0.4 ML Syringe SQ SCH (11:14)
[2018-07-08] MEDS: LORazepam 0.5 MG Tablet PO PRN ×2 (11:14→20:23)
[2018-07-08] MEDS ORDERED: Sodium Chloride 0.9% 2 ML Flush PRN IV.FLUSH (11:57)
--- NOTE | 2018-07-08 17:09 | P.PNIM ---
Subjective Interval history: Mrs. Rapp chief complaint is shakes, anxiety, body aches from withdrawal from her regular heroin use. I offered her a anxiety medication and she was relieved to receive it. Physical Exam Vital signs: Vital Signs 07/07/18 17:34 07/07/18 20:00 07/07/18 23:00 Temperature 101.8 F H 100.0 F H Pulse Rate 102 H Respiratory Rate 18 17 Blood Pressure 114/59 L Pulse Oximetry 96 07/08/18 00:00 07/08/18 04:00 07/08/18 05:14 Temperature 98.3 F 98.9 F Pulse Rate 80 87 Respiratory Rate 18 21 22 Blood Pressure 103/51 L 109/52 L Pulse Oximetry 99 94 L 07/08/18 08:00 07/08/18 12:00 07/08/18 15:48 Temperature 103.0 F H 99.1 F 97.6 F Pulse Rate 99 H 65 76 Respiratory Rate 19 18 Blood Pressure 106/54 L 99/56 L 93/55 L Pulse Oximetry 95 97 98 07/08/18 16:14 Temperature 99.7 F H Pulse Rate 79 Respiratory Rate 18 Blood Pressure 97/50 L Pulse Oximetry 98 Intake & Output 07/07/18 07/08/18 07/08/18 18:59 06:59 18:59 Intake Total 2570 / 2570 1300 / 1300 1150 / 1150 Output Total 1200 / 1200 Balance 1370 / 1370 1300 / 1300 1150 / 1150 Weight 68.039 kg Intake: IV 1350 / 1350 1300 / 1300 1150 / 1150 NS Inj 1,000 ML @ 100 mls/hr IV 1000 / 1000 1000 / 1000 800 / 800 .CONT .Q10H [facility] Rx#:[id number] Zosyn 3.375 GM Premix 50 ML @ 100 / 100 50 / 50 100 / 100 100 mls/hr IV.SIG Q6H [facility] Rx#: [id number] Vancomycin Inj 1,000 MG In NS 250 / 250 250 / 250 250 / 250 Inj 250 ML @ 250 mls/hr IV.SIG Q12H [facility] Rx#:[id number] Oral 1220 / 1220 Intake (Blood Product) Amt 0 / 0 Rbc As-3 Leukoreduced Unit 0 / 0 [id number] Output: Urine 1200 / 1200 Other: # Voids 3 Narrative: GENERAL: AAOx3, no acute distress, anxious, withdrawing SKIN: Warm and dry. No rashes HEAD: Atruamtic, normocephalic. EYES: No scleral icterus. No injection or drainage. ENT: Moist mucous membranes, patent nares, no erythema of oropharynx. NECK: Supple, trachea midline. No JVD or lymphadenopathy. Normal thyroid. CARDIOVASCULAR: Sinus tachycardia. 2/6 systolic ejection murmur RESPIRATORY: Breath sounds clear equal bilaterally. No crackles or wheezes. No accessory muscle use. GASTROINTESTINAL: Abdomen soft, non-tender, nondistended, normal active bowel sounds MUSCULOSKELETAL: No cyanosis, or edema. NEURO: CN II-XII grossly intact, no focal deficits, no slurring of speech Results - Labs CBC & Chem 7: 07/08/18 06:50 07/07/18 08:18 Laboratory Results - last 24 hr 07/07/18 07/08/18 07/08/18 22:39 06:50 12:23 WBC 7.2 RBC 2.91 L Hgb 6.8 L* Hct 22.3 L MCV 76.6 L MCH 23.4 L MCHC 30.5 L RDW 16.1 Plt Count 143 L MPV 7.3 Neut % (Auto) 76.5 H Lymph % (Auto) 16.3 [place] % (Auto) 6.4 Eos % (Auto) 0.3 Baso % (Auto) 0.5 Neut # (Auto) 5.5 Lymph # (Auto) 1.2 [place] # (Auto) 0.5 Eos # (Auto) 0.0 Baso # (Auto) 0.0 WBC Differential . Differential Comment Auto diff final Hematology Comments Iron 15 L TIBC 202 L % Saturation 7.4 L Ferritin 301 H Vitamin B12 1048 H Folate 10.7 Vancomycin Trough 4.7 L Blood Type O Positive Antibody Screen Negative MTS Gel Crossmatch See Detail Microbiology 07/06/18 08:39 Blood - Peripheral Aerobic Blood Culture - Preliminary Staphylococcus aureus 07/06/18 08:39 Blood - Peripheral Anaerobic Blood Culture - Preliminary Staphylococcus aureus 07/06/18 08:39 Blood - Peripheral Aerobic Blood Culture - Preliminary Staphylococcus aureus 07/06/18 08:39 Blood - Peripheral Anaerobic Blood Culture - Preliminary Staphylococcus aureus 07/06/18 09:25 Clean Catch Urine Urine Culture - Final No growth in 48 hours Assessment and Plan - Assessment (1) Sepsis Code(s): A41.9 - Sepsis, unspecified organism Status: Acute (2) Urinary tract infection Code(s): N39.0 - Urinary tract infection, site not specified Status: Acute (3) Community acquired pneumonia Code(s): J18.9 - Pneumonia, unspecified organism Status: Acute - Plan 28-year-old female admitted secondary to community acquired pneumonia, UTI, and sepsis with a history of IV drug abuse and infective endocarditis Urinary tract infection/ Community acquired pneumonia/ Sepsis CXR indicative of pneumonia and UA indicative of UTI. Continue vancomycin and Zosyn Continue to follow cultures Opioid withdrawal Patient is a regular user of heroin Continue long-acting morphine Ativan p.o. added for breakthrough anxiety, assisted with patient taking naps today and being less anxious Time spent explaining to patient the up and down regulation of pain receptors and why this translates to body wide pain Infective endocarditis The pt was recently treated for tricuspid endocarditis but did not complete treatment as she had her PICC line removed. Repeat echo demonstrates persistent endocarditis. Continue vancomycin and Zosyn Appreciate infectious disease consult Anemia Hemoglobin down to 6.8 today, patient is tachycardic, withdrawal versus symptomatic anemia I believe she would benefit from some blood to normalize her hemoglobin level Patient typed and cross and will transfuse 2 units today and overnight Recheck hemoglobin with a.m. labs DVT Prophylaxis Lovenox (1) Sepsis Qualifiers: Sepsis type: sepsis due to unspecified organism Qualified Code(s): A41.9 - Sepsis, unspecified organism (2) Urinary tract infection Qualifiers: Urinary tract infection type: acute cystitis Hematuria presence: without hematuria Qualified Code(s): N30.00 - Acute cystitis without hematuria (3) Community acquired pneumonia Qualifiers: Laterality: left Lung location: lower lobe of lung Qualified Code(s): J18.1 - Lobar pneumonia, unspecified organism
[2018-07-08] MEDS ORDERED: Vancomycin Inj 1,250 MG in Sodium Chlor 0.9% Inj 250 ML IV.SIG SCH (18:00)
[2018-07-08] MEDS: Sodium Chloride 0.9% 2 ML Flush BID IV.FLUSH SCH (20:23)
[2018-07-08 23:13] LABS: Hematocrit 26.4 % (35.0-46.0); Hemoglobin 8.4 gm/dL (11.6-15.3)
[2018-07-09] MEDS: Vancomycin Inj 1,250 MG in Sodium Chlor 0.9% Inj 250 ML IV.SIG SCH ×2 (00:13→05:49)
[2018-07-09] MEDS: Sod Chloride 0.9% Inj 1,000 ML IV.CONT SCH ×4 (00:13→23:49)
[2018-07-09] MEDS: Morphine Sulfate 15 MG SR Tablet PO SCH ×4 (00:14→22:14)
[2018-07-09] MEDS: Piperacil/Tazo 3.375 GM Premix 50 ML IV.SIG SCH ×2 (04:39→08:28)
[2018-07-09] MEDS: Morphine Sulfate Inj 2 MG/ML Vial IV.PUSH PRN ×5 (04:39→23:21)
[2018-07-09] MEDS: LORazepam 0.5 MG Tablet PO PRN ×2 (05:49→12:04)
[2018-07-09 07:35] LABS: Hematocrit 26.2 % (35.0-46.0); Hemoglobin 8.7 gm/dL (11.6-15.3); Mean Corpuscular HGB Conc 33.3 % (32.0-36.0); Mean Corpuscular Hemoglobin 24.9 pg (27.0-34.0); Mean Corpuscular Volume 74.7 fL (80.0-100.0); Mean Platelet Volume 7.5 fL (7.0-11.0); Platelet Count 204 th/mm3 (150-450); White Blood Count 8.2 th/mm3 (4.0-11.0)
[2018-07-09 08:01] LABS: Glomerular Filtration Rate Greater Than 89 mL/min (>89)
[2018-07-09] MEDS: Sodium Chloride 0.9% 2 ML Flush BID IV.FLUSH SCH ×2 (08:32→21:17)
[2018-07-09] MEDS: Lactobacillus Acidophilus/L. Spores Tablet PO SCH ×3 (08:32→18:04)
--- NOTE | 2018-07-09 11:41 | P.PNID ---
Subjective Remarks: Patient had elevated temperature and night sweats last night. She is complaining of shoulder aches. Temperature was 102 last night. Culture has staph aureus which is methicillin sensitive. This is a 28-year-old white female with the use of IV drugs. The patient has had multiple bouts of endocarditis in the past involving the tricuspid valve. She was last treated for endocarditis in January and February 2018. She was sent home on IV antibiotics to continue outpatient treatment for MRSA endocarditis. The patient states that after she went home, she only received approximately 10 doses of the IV antibiotics, which was being administered by a family member. She states that the family member was no longer interested in giving her the medications and therefore, she was not getting it. The PICC line which was placed for the outpatient IV antibiotics was removed because she was not compliant with the treatment. The patient states that she went back to using IV drugs in the form of heroin and she last used IV heroin 2 days ago. She said that she has been sick for some weeks and mostly lying in bed. However, over the past couple of weeks, she noted that she was feeling more sick and that she was having a fever but that she was trying to find a good time to come to the emergency room to be evaluated. She states that she lives alone in her home and she was trying to put her home in order before she came for evaluation of the fevers. She complains of generalized weakness and also notes that she has chest pain across the chest. She has had a history of pulmonary embolism in the past. She was noted to have altered mental status in the emergency department,. 2-D echocardiogram reveals moderate to severe tricuspid valve regurgitation and mild thickening of the tricuspid valve leaflets and findings consistent with vegetation on the tricuspid valve. Past Medical History: PAST MEDICAL HISTORY: Tricuspid valve endocarditis. Last episode was in January 2018. History of septic pulmonary emboli. Allergies/Adverse Reactions: Allergies No Known Allergies Allergy (Verified 07/06/18 08:55) Objective Vital Signs 07/08/18 12:00 07/08/18 15:48 07/08/18 16:00 Temperature 99.5 F 97.6 F Pulse Rate 83 76 83 Respiratory Rate 18 18 Blood Pressure 103/50 L 93/55 L Pulse Oximetry 97 98 07/08/18 16:14 07/08/18 20:00 07/08/18 21:56 Temperature 99.7 F H 102.8 F H 100.1 F H Pulse Rate 79 117 H Respiratory Rate 18 22 Blood Pressure 97/50 L 117/58 L Pulse Oximetry 98 96 07/09/18 00:00 07/09/18 04:00 07/09/18 06:51 Temperature 98.1 F 98.3 F Pulse Rate 78 80 Respiratory Rate 16 16 12 Blood Pressure 94/52 L 112/59 L Pulse Oximetry 98 98 07/09/18 08:00 07/09/18 11:14 Temperature 98.7 F Pulse Rate 82 Respiratory Rate 20 12 Blood Pressure 116/58 L Pulse Oximetry 98 Intake & Output 07/08/18 07/09/18 07/09/18 18:59 06:59 18:59 Intake Total 1790 / 1790 812.5 / 812.5 1552.5 / 1552.5 Balance 1790 / 1790 812.5 / 812.5 1552.5 / 1552.5 Weight 70.8 kg Intake: IV 1150 / 1150 812.5 / 812.5 1312.5 / 1312.5 NS Inj 1,000 ML @ 100 mls/hr IV 800 / 800 200 / 200 1000 / 1000 .CONT .Q10H [facility] Rx#:[id number] Zosyn 3.375 GM Premix 50 ML @ 100 / 100 100 / 100 50 / 50 100 mls/hr IV.SIG Q6H [facility] Rx#: [id number] NS Inj 250 ML @ 15 mls/hr IV. 250 / 250 SIG ONCE ONE Rx#:[id number] Vancomycin Inj 1,000 MG In NS 250 / 250 Inj 250 ML @ 250 mls/hr IV.SIG Q12H [facility] Rx#:[id number] Vancomycin Inj 1,250 MG In NS 262.5 / 262.5 262.5 / 262.5 Inj 250 ML @ 250 mls/hr IV.SIG Q8H [facility] Rx#:[id number] Oral 640 / 640 240 / 240 Intake (Blood Product) Amt 0 / 0 0 / 0 Rbc As-3 Leukoreduced Unit 0 / 0 0 / 0 [id number] Other: # Voids 4 2 07/06/18 08:39 Blood - Peripheral Aerobic Blood Culture - Final Staphylococcus aureus 07/06/18 08:39 Blood - Peripheral Anaerobic Blood Culture - Final Staphylococcus aureus 07/06/18 08:39 Blood - Peripheral Aerobic Blood Culture - Final Staphylococcus aureus 07/06/18 08:39 Blood - Peripheral Anaerobic Blood Culture - Final Staphylococcus aureus 07/06/18 09:25 Clean Catch Urine Urine Culture - Final No growth in 48 hours Lab - Hematology Results 07/08/18 07/08/18 07/09/18 06:50 22:54 06:34 WBC 7.2 8.2 RBC 2.91 L 3.50 L Hgb 6.8 L* 8.4 L 8.7 L Hct 22.3 L 26.4 L 26.2 L MCV 76.6 L 74.7 L MCH 23.4 L 24.9 L MCHC 30.5 L 33.3 RDW 16.1 16.0 Plt Count 143 L 204 D MPV 7.3 7.5 Neut % (Auto) 76.5 H Lymph % (Auto) 16.3 [place] % (Auto) 6.4 Eos % (Auto) 0.3 Baso % (Auto) 0.5 Neut # (Auto) 5.5 Lymph # (Auto) 1.2 [place] # (Auto) 0.5 Eos # (Auto) 0.0 Baso # (Auto) 0.0 WBC Differential . Differential Comment Auto diff final Hematology Comments Lab - Chemistry Results 07/07/18 07/09/18 22:39 06:34 Creatinine 0.57 Estimated GFR Greater than 89 Iron 15 L TIBC 202 L % Saturation 7.4 L Ferritin 301 H Vitamin B12 1048 H Folate 10.7 Imaging: ITS Impressions Chest X-Ray 07/06/18 07:24 CONCLUSION: 1. Patchy left mid to lower lung zone airspace consolidation concerning for pneumonia history of fever. Physical Exam: PHYSICAL EXAMINATION: GENERAL: Patient is awake and alert. HEENT: Head is atraumatic. Extraocular movements grossly intact. Pupils are reactive to light. No icterus. Oropharynx with moist mucosa. No visible lesions. NECK: Supple without adenopathy or swelling. LUNGS: Rhonchi at the left base. HEART: Regular S1 and S2. 3/6 systolic ejection murmur at the left sternal border. ABDOMEN: Soft. Bowel sounds present. Nontender. EXTREMITIES: No clubbing, cyanosis or edema. SKIN: Track hart visible on the lower extremities. No clubbing, cyanosis or edema in lower extremities. No diffuse rash. NEUROLOGIC: No gross focal finding. PSYCHIATRIC: Calm and cooperative. 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 RECOMMENDATIONS: 1. Stop vancomycin. 2. Begin Ancef 2 g IV every 8 hours. Plan on treatment for 6 weeks. 3. Stop piperacillin/tazobactam. 4. Repeat blood cultures today. 5. Follow clinical status. 6. She is at very high risk for continued deterioration if she is not treated completely for endocarditis and therefore, I do not think she is a candidate for outpatient treatment of endocarditis. The patient has been noncompliant and that is the reason for recurrence of endocarditis. I have reviewed laboratory data, radiographic studies and microbiologic data in formulation of plans on this patient.
[2018-07-09] MEDS ORDERED: ceFAZolin Inj 2,000 MG in Sodium Chlor 0.9% Inj 80 ML IV.SIG SCH (12:00)
[2018-07-09] MEDS: Enoxaparin Inj 40 MG/0.4 ML Syringe SQ SCH (12:04)
[2018-07-09] MEDS: ceFAZolin 2 GM Premix Inj 2 GM/50 ML PIGGYBACK IV.SIG SCH ×2 (12:05→19:50)
[2018-07-09] MEDS: Acetaminophen 500 MG Tablet PO PRN ×2 (12:27→19:47)
[2018-07-09] MEDS: Ibuprofen 600 MG Tablet PO SCH ×2 (14:25→22:14)
[2018-07-09] MEDS: Benzonatate 100 MG Capsule PO PRN (14:26)
--- NOTE | 2018-07-09 18:16 | P.PNIM ---
Subjective Interval history: Patient states that much of her pain is in her central chest related to coughing. Overall she would like more frequency or higher dose of her IV narcotics, but she understands due to her heroin addiction this is not a great idea. Physical Exam Vital signs: Vital Signs 07/08/18 20:00 07/08/18 21:56 07/09/18 00:00 Temperature 102.8 F H 100.1 F H 98.1 F Pulse Rate 117 H 78 Respiratory Rate 22 16 Blood Pressure 117/58 L 94/52 L Pulse Oximetry 96 98 07/09/18 04:00 07/09/18 06:51 07/09/18 08:00 Temperature 98.3 F 98.7 F Pulse Rate 80 82 Respiratory Rate 16 12 20 Blood Pressure 112/59 L 116/58 L Pulse Oximetry 98 98 07/09/18 11:14 07/09/18 12:00 07/09/18 12:54 Temperature 101.4 F H Pulse Rate 94 H 94 H Respiratory Rate 12 20 Blood Pressure 116/55 L Pulse Oximetry 99 07/09/18 16:00 Temperature 98 F Pulse Rate 79 Respiratory Rate 20 Blood Pressure 112/60 Pulse Oximetry 98 Intake & Output 07/08/18 07/09/18 07/09/18 18:59 06:59 18:59 Intake Total 1790 / 1790 812.5 / 812.5 2602.5 / 2602.5 Balance 1790 / 1790 812.5 / 812.5 2602.5 / 2602.5 Weight 70.8 kg Intake: IV 1150 / 1150 812.5 / 812.5 2362.5 / 2362.5 NS Inj 1,000 ML @ 100 mls/hr IV 800 / 800 200 / 200 2000 / 1999 .CONT .Q10H [facility] Rx#:[id number] Zosyn 3.375 GM Premix 50 ML @ 100 / 100 100 / 100 50 / 50 100 mls/hr IV.SIG Q6H [facility] Rx#: [id number] NS Inj 250 ML @ 15 mls/hr IV. 250 / 250 SIG ONCE ONE Rx#:[id number] Vancomycin Inj 1,000 MG In NS 250 / 250 Inj 250 ML @ 250 mls/hr IV.SIG Q12H [facility] Rx#:[id number] Vancomycin Inj 1,250 MG In NS 262.5 / 262.5 262.5 / 262.5 Inj 250 ML @ 250 mls/hr IV.SIG Q8H [facility] Rx#:[id number] Ancef 2 GM Premix Inj 2 gm In 50 / 50 50 ml @ 100 mls/hr IV.SIG Q8H [facility] Rx#:[id number] Oral 640 / 640 240 / 240 Intake (Blood Product) Amt 0 / 0 0 / 0 Rbc As-3 Leukoreduced Unit 0 / 0 0 / 0 [id number] Other: # Voids 4 2 3 Narrative: GENERAL: AAOx3, no acute distress, improved affect, less withdrawal signs, less anxiety SKIN: Warm and dry. No rashes HEAD: Atruamtic, normocephalic. EYES: No scleral icterus. No injection or drainage. ENT: Moist mucous membranes, patent nares, no erythema of oropharynx. NECK: Supple, trachea midline. No JVD or lymphadenopathy. Normal thyroid. CARDIOVASCULAR: Normal sinus rhythm. 2/6 systolic ejection murmur RESPIRATORY: Breath sounds clear equal bilaterally. No crackles or wheezes. No accessory muscle use. GASTROINTESTINAL: Abdomen soft, non-tender, nondistended, normal active bowel sounds MUSCULOSKELETAL: No cyanosis, or edema. NEURO: CN II-XII grossly intact, no focal deficits, no slurring of speech Results - Labs CBC & Chem 7: 07/09/18 06:34 07/09/18 06:34 Laboratory Results - last 24 hr 07/08/18 07/08/18 07/09/18 12:23 22:54 06:34 WBC RBC Hgb 8.4 L Hct 26.4 L MCV MCH MCHC RDW Plt Count MPV Creatinine 0.57 Estimated GFR Greater than 89 MTS Gel Crossmatch See Detail 07/09/18 06:34 WBC 8.2 RBC 3.50 L Hgb 8.7 L Hct 26.2 L MCV 74.7 L MCH 24.9 L MCHC 33.3 RDW 16.0 Plt Count 204 D MPV 7.5 Creatinine Estimated GFR MTS Gel Crossmatch Microbiology 07/06/18 08:39 Blood - Peripheral Aerobic Blood Culture - Final Staphylococcus aureus 07/06/18 08:39 Blood - Peripheral Anaerobic Blood Culture - Final Staphylococcus aureus 07/06/18 08:39 Blood - Peripheral Aerobic Blood Culture - Final Staphylococcus aureus 07/06/18 08:39 Blood - Peripheral Anaerobic Blood Culture - Final Staphylococcus aureus Assessment and Plan - Assessment (1) Sepsis Code(s): A41.9 - Sepsis, unspecified organism Status: Acute (2) Urinary tract infection Code(s): N39.0 - Urinary tract infection, site not specified Status: Acute (3) Community acquired pneumonia Code(s): J18.9 - Pneumonia, unspecified organism Status: Acute - Plan 28-year-old female admitted secondary to community acquired pneumonia, UTI, and sepsis with a history of IV drug abuse and infective endocarditis Urinary tract infection/ Community acquired pneumonia/ Sepsis CXR indicative of pneumonia and UA indicative of UTI. Continue vancomycin and Zosyn Continue to follow cultures Opioid withdrawal Patient is a regular user of heroin Continue long-acting morphine for baseline coverage Continue p.o. Ativan as needed Costochondritis Exacerbated by her cough Controlled ibuprofen added to address inflammation Tessalon Perles added to reduce cough reflex Infective endocarditis The pt was recently treated for tricuspid endocarditis but did not complete treatment as she had her PICC line removed. Repeat echo demonstrates persistent endocarditis. Continue vancomycin and Zosyn Appreciate infectious disease consult Anemia Patient tolerated transfusion well, hemoglobin 8.9, will follow DVT Prophylaxis Lovenox (1) Sepsis Qualifiers: Sepsis type: sepsis due to unspecified organism Qualified Code(s): A41.9 - Sepsis, unspecified organism (2) Urinary tract infection Qualifiers: Urinary tract infection type: acute cystitis Hematuria presence: without hematuria Qualified Code(s): N30.00 - Acute cystitis without hematuria (3) Community acquired pneumonia Qualifiers: Laterality: left Lung location: lower lobe of lung Qualified Code(s): J18.1 - Lobar pneumonia, unspecified organism
[2018-07-10] MEDS ORDERED: Pharmacy Ordered Lab Info OTHER ONE ×2 (01:45→05:45)
[2018-07-10] MEDS: Morphine Sulfate Inj 2 MG/ML Vial IV.PUSH PRN ×5 (03:41→22:48)
[2018-07-10] MEDS: ceFAZolin 2 GM Premix Inj 2 GM/50 ML PIGGYBACK IV.SIG SCH ×3 (03:41→21:48)
[2018-07-10] MEDS: LORazepam 0.5 MG Tablet PO PRN ×3 (03:47→21:49)
[2018-07-10] MEDS: Sod Chloride 0.9% Inj 1,000 ML IV.CONT SCH ×5 (04:50→21:50)
[2018-07-10] MEDS: Ibuprofen 600 MG Tablet PO SCH ×2 (05:19→13:06)
[2018-07-10] MEDS: Morphine Sulfate 15 MG SR Tablet PO SCH ×3 (05:19→21:48)
[2018-07-10] MEDS: Lactobacillus Acidophilus/L. Spores Tablet PO SCH ×3 (08:23→18:06)
[2018-07-10] MEDS: Benzonatate 100 MG Capsule PO PRN ×2 (08:23→18:06)
[2018-07-10] MEDS: Sodium Chloride 0.9% 2 ML Flush BID IV.FLUSH SCH ×2 (08:23→21:50)
[2018-07-10] MEDS: Enoxaparin Inj 40 MG/0.4 ML Syringe SQ SCH (11:42)
--- NOTE | 2018-07-10 16:35 | P.PNIM ---
Subjective Interval history: Patient's chief complaint remains costochondritic pain that is aggravated by coughing. She has pneumonia. Physical Exam Vital signs: Vital Signs 07/09/18 20:00 07/09/18 23:20 07/09/18 23:21 Temperature 97.7 F Pulse Rate 75 Respiratory Rate 18 19 19 Blood Pressure 114/67 Pulse Oximetry 98 07/09/18 23:24 07/10/18 00:00 07/10/18 03:50 Temperature 97.8 F Pulse Rate 79 Respiratory Rate 19 18 18 Blood Pressure 97/52 L Pulse Oximetry 98 07/10/18 04:00 07/10/18 07:00 07/10/18 08:00 Temperature 97.2 F L 97.9 F Pulse Rate 67 68 Respiratory Rate 19 12 16 Blood Pressure 101/59 L 110/68 Pulse Oximetry 98 100 07/10/18 09:00 07/10/18 11:41 07/10/18 12:00 Temperature 98.5 F Pulse Rate 90 Respiratory Rate 12 12 16 Blood Pressure 129/74 Pulse Oximetry 100 07/10/18 12:25 Temperature Pulse Rate 92 H Respiratory Rate Blood Pressure Pulse Oximetry Intake & Output 07/09/18 07/10/18 07/10/18 18:59 06:59 18:59 Intake Total 2602.5 / 2602.5 542 / 542 2049 Balance 2602.5 / 2602.5 542 / 542 2049 Weight 71.8 kg Intake: IV 2362.5 / 2362.5 100 / 100 2049 NS Inj 1,000 ML @ 100 mls/hr IV 1999 / 1999 .CONT .Q10H [facility] Rx#:[id number] Zosyn 3.375 GM Premix 50 ML @ 50 / 50 100 mls/hr IV.SIG Q6H [facility] Rx#: [id number] Vancomycin Inj 1,250 MG In NS 262.5 / 262.5 Inj 250 ML @ 250 mls/hr IV.SIG Q8H [facility] Rx#:[id number] Ancef 2 GM Premix Inj 2 gm In 50 / 50 100 / 100 50 / 50 50 ml @ 100 mls/hr IV.SIG Q8H [facility] Rx#:[id number] Oral 240 / 240 442 / 442 Other: # Voids 3 2 Date of Last Bowel Movement 07/09/18 07/09/18 Narrative: GENERAL: AAOx3, no acute distress, improved affect, less withdrawal signs, less anxiety SKIN: Warm and dry. No rashes HEAD: Atruamtic, normocephalic. EYES: No scleral icterus. No injection or drainage. ENT: Moist mucous membranes, patent nares, no erythema of oropharynx. NECK: Supple, trachea midline. No JVD or lymphadenopathy. Normal thyroid. CARDIOVASCULAR: Normal sinus rhythm. 2/6 systolic ejection murmur RESPIRATORY: Breath sounds clear equal bilaterally. No crackles or wheezes. No accessory muscle use. GASTROINTESTINAL: Abdomen soft, non-tender, nondistended, normal active bowel sounds MUSCULOSKELETAL: No cyanosis, or edema. NEURO: CN II-XII grossly intact, no focal deficits, no slurring of speech Results - Labs CBC & Chem 7: 07/09/18 06:34 07/09/18 06:34 Microbiology 07/09/18 15:16 Blood - Peripheral Aerobic Blood Culture - Preliminary No growth in 1 day 07/09/18 15:16 Blood - Peripheral Anaerobic Blood Culture - Preliminary No growth in 1 day 07/09/18 15:10 Blood - Peripheral Aerobic Blood Culture - Preliminary No growth in 1 day 07/09/18 15:10 Blood - Peripheral Anaerobic Blood Culture - Preliminary No growth in 1 day Assessment and Plan - Assessment (1) Sepsis Code(s): A41.9 - Sepsis, unspecified organism Status: Acute (2) Urinary tract infection Code(s): N39.0 - Urinary tract infection, site not specified Status: Acute (3) Community acquired pneumonia Code(s): J18.9 - Pneumonia, unspecified organism Status: Acute - Plan 28-year-old female admitted secondary to community acquired pneumonia, UTI, and sepsis with a history of IV drug abuse and infective endocarditis Urinary tract infection/ Community acquired pneumonia/ Sepsis CXR indicative of pneumonia and UA indicative of UTI. Continue vancomycin and Zosyn Continue to follow cultures Opioid withdrawal Patient is a regular user of heroin Continue long-acting morphine for baseline coverage Continue p.o. Ativan as needed Costochondritis Exacerbated by her cough Did not respond well to ibuprofen Continuing Tessalon Perles Single dose of Solu-Medrol 125 mg IV, follow for response Infective endocarditis The pt was recently treated for tricuspid endocarditis but did not complete treatment as she had her PICC line removed. Repeat echo demonstrates persistent endocarditis. Continue vancomycin and Zosyn Appreciate infectious disease consult Anemia Patient tolerated transfusion well, hemoglobin 8.9, will follow DVT Prophylaxis Lovenox (1) Sepsis Qualifiers: Sepsis type: sepsis due to unspecified organism Qualified Code(s): A41.9 - Sepsis, unspecified organism (2) Urinary tract infection Qualifiers: Urinary tract infection type: acute cystitis Hematuria presence: without hematuria Qualified Code(s): N30.00 - Acute cystitis without hematuria (3) Community acquired pneumonia Qualifiers: Laterality: left Lung location: lower lobe of lung Qualified Code(s): J18.1 - Lobar pneumonia, unspecified organism
[2018-07-10] MEDS ORDERED: MethylPREDNISolone Sod Succinate Inj 125 MG/2 ML Vial IV.PUSH ONE (17:30)
[2018-07-11] MEDS: Sod Chloride 0.9% Inj 1,000 ML IV.CONT SCH ×2 (00:01→12:01)
[2018-07-11] MEDS: Benzonatate 100 MG Capsule PO PRN ×2 (03:54→20:40)
[2018-07-11] MEDS: Morphine Sulfate Inj 2 MG/ML Vial IV.PUSH PRN ×3 (03:54→12:02)
[2018-07-11] MEDS: ceFAZolin 2 GM Premix Inj 2 GM/50 ML PIGGYBACK IV.SIG SCH ×3 (03:54→20:31)
[2018-07-11] MEDS: Morphine Sulfate 15 MG SR Tablet PO SCH ×3 (05:58→21:40)
[2018-07-11] MEDS: LORazepam 0.5 MG Tablet PO PRN ×3 (05:59→22:30)
[2018-07-11] MEDS: Lactobacillus Acidophilus/L. Spores Tablet PO SCH ×3 (09:24→17:00)
[2018-07-11] MEDS: Sodium Chloride 0.9% 2 ML Flush BID IV.FLUSH SCH ×2 (09:24→21:41)
[2018-07-11 10:07] LABS: Glomerular Filtration Rate Greater Than 89 mL/min (>89)
--- NOTE | 2018-07-11 11:22 | P.PN ---
Subjective Interval history: Patient doing well, tolerating PO. Patient is voiding/stooling well. Patient denies current symptoms of withdrawal. No overnight concerns per RN. Physical Exam Vital signs: Vital Signs 07/10/18 11:41 07/10/18 12:00 07/10/18 12:25 Temperature 98.5 F Pulse Rate 90 92 H Respiratory Rate 12 16 Blood Pressure 129/74 Pulse Oximetry 100 07/10/18 16:00 07/10/18 16:50 07/10/18 20:00 Temperature 97.4 F L 98.3 F Pulse Rate 80 84 83 Respiratory Rate 16 16 Blood Pressure 108/75 122/78 Pulse Oximetry 98 98 07/10/18 22:51 07/11/18 00:00 07/11/18 00:49 Temperature 98.2 F Pulse Rate 81 87 Respiratory Rate 19 19 Blood Pressure 134/76 Pulse Oximetry 98 07/11/18 04:00 07/11/18 08:00 Temperature 98.0 F 97.7 F Pulse Rate 74 76 Respiratory Rate 20 20 Blood Pressure 116/72 136/79 Pulse Oximetry 97 98 Intake & Output 07/10/18 07/11/18 07/11/18 18:59 06:59 18:59 Intake Total 2290 / 2290 1321 / 1321 Balance 2290 / 2290 1321 / 1321 Weight 83.1 kg 71.7 kg Intake: IV 2049 / 2049 1100 / 1100 NS Inj 1,000 ML @ 100 mls/hr IV 2000 / 2000 1000 / 1000 .CONT .Q10H [facility] Rx#:[id number] Ancef 2 GM Premix Inj 2 gm In 50 / 50 100 / 100 50 ml @ 100 mls/hr IV.SIG Q8H [facility] Rx#:[id number] Oral 240 / 240 221 / 221 Other: # Voids 5 Date of Last Bowel Movement 07/10/18 07/10/18 07/10/18 # Bowel Movements 1 Narrative: GENERAL: Thin female, in no acute distress, lying comfortably in bed, no sx of WD SKIN: Warm and dry. HEENT: Normocephalic. No scleral icterus. No injection or drainage. PERRLA, MOM. NECK: Supple, trachea midline. No JVD or lymphadenopathy. CARDIOVASCULAR: Regular rate and rhythm, 2/6 systolic ejection murmur at tricuspid region. RESPIRATORY: Breath sounds equal bilaterally. No accessory muscle use. GASTROINTESTINAL: Abdomen soft, non-tender, nondistended. MUSCULOSKELETAL: No cyanosis, or edema. BACK: Nontender without obvious deformity. No CVA tenderness. NEURO: AAO x3, no focal deficits, pleasant and cooperative Results - Labs CBC & Chem 7: 07/09/18 06:34 07/11/18 08:49 Laboratory Results - last 24 hr 07/08/18 07/11/18 12:23 08:49 Creatinine 0.67 Estimated GFR Greater than 89 MTS Gel Crossmatch See Detail Microbiology 07/09/18 15:16 Blood - Peripheral Aerobic Blood Culture - Preliminary No growth in 2 days 07/09/18 15:16 Blood - Peripheral Anaerobic Blood Culture - Preliminary No growth in 2 days 07/09/18 15:10 Blood - Peripheral Aerobic Blood Culture - Preliminary No growth in 2 days 07/09/18 15:10 Blood - Peripheral Anaerobic Blood Culture - Preliminary No growth in 2 days Assessment and Plan - Assessment (1) Sepsis Code(s): A41.9 - Sepsis, unspecified organism Status: Acute (2) Urinary tract infection Code(s): N39.0 - Urinary tract infection, site not specified Status: Ruled- out (3) Community acquired pneumonia Code(s): J18.9 - Pneumonia, unspecified organism Status: Acute - Plan This is a 28-year-old F admitted secondary to community acquired pneumonia, UTI , and sepsis with a history of IV drug abuse and infective endocarditis, HD#6 1. Community Acquired Pneumonia/Sepsis/Bacteremia CXR indicative of pneumonia with +Bld Cx Continue Ancef IV Bld Cx x4 from 07/06, +MSSA Rpt Bld Cx from 07/09, NG at 2 days x4 Urine Cx from 07/06, NG at 48hrs, final Appreciate ID assistance with management 2. Opioid Withdrawal Hx of active Heroin use Continue Morphine PO PRN and Ativan PRN We will obtain UDS today We will discontinue IV Morphine today 3. Costochondritis, improved Exacerbated by her cough Did not respond well to ibuprofen Continuing Tessalon Perles PRN s/p Solu-Medrol 125 mg IVx1 4. Infective Endocarditis Recently treated for tricuspid endocarditis but did not complete treatment as she had her PICC line removed. Repeat echo demonstrates persistent endocarditis. Continue Ancef IV Appreciate Infectious Disease assistance with management ID Reccs 07/09: 1. Stop vancomycin. 2. Begin Ancef 2 g IV every 8 hours. Plan on treatment for 6 weeks. 3. Stop piperacillin/tazobactam. 4. Repeat blood cultures today. 5. Follow clinical status. 6. She is at very high risk for continued deterioration if she is not treated completely for endocarditis and therefore, I do not think she is a candidate for outpatient treatment of endocarditis. The patient has been noncompliant and that is the reason for recurrence of endocarditis. 5. Anemia s/p transfusion well for Hgb 6.8 on 07/08, Hemoglobin 8.7 on 07/09 Will follow up CBC in AM 6. DVT Prophylaxis: Lovenox 7. Dispo: Cont. IP ABX and F/U ID recommendations Code Status: full Discussed Condition With: patient, RN (1) Sepsis Qualifiers: Sepsis type: sepsis due to unspecified organism Qualified Code(s): A41.9 - Sepsis, unspecified organism (2) Urinary tract infection Qualifiers: Urinary tract infection type: acute cystitis Hematuria presence: without hematuria Qualified Code(s): N30.00 - Acute cystitis without hematuria (3) Community acquired pneumonia Qualifiers: Laterality: left Lung location: lower lobe of lung Qualified Code(s): J18.1 - Lobar pneumonia, unspecified organism
[2018-07-11] MEDS: Enoxaparin Inj 40 MG/0.4 ML Syringe SQ SCH (12:00)
[2018-07-11] MEDS: Ferrous Sulfate 325 MG Tablet PO SCH ×2 (12:01→20:42)
[2018-07-11 14:48] LABS: Amphetamine Screen,Urine Neg (Neg); Barbiturate Screen,Urine Neg (Neg); Cannabinoid Screen,Urine Neg (Neg); Cocaine Screen,Urine Neg (Neg)
[2018-07-11 14:51] LABS: Opiate Screen,Urine Pos (Neg)
[2018-07-11] MEDS: Acetaminophen 500 MG Tablet PO PRN (22:30)
[2018-07-12] MEDS: LORazepam 0.5 MG Tablet PO PRN ×4 (04:12→22:08)
[2018-07-12] MEDS: ceFAZolin 2 GM Premix Inj 2 GM/50 ML PIGGYBACK IV.SIG SCH ×3 (04:12→20:22)
[2018-07-12] MEDS: Benzonatate 100 MG Capsule PO PRN (05:59)
[2018-07-12] MEDS: Morphine Sulfate 15 MG SR Tablet PO SCH (05:59)
[2018-07-12] MEDS: Acetaminophen 500 MG Tablet PO PRN (09:16)
[2018-07-12] MEDS: Sodium Chloride 0.9% 2 ML Flush BID IV.FLUSH SCH ×2 (09:17→22:02)
[2018-07-12] MEDS: Lactobacillus Acidophilus/L. Spores Tablet PO SCH ×3 (09:17→17:31)
[2018-07-12] MEDS: Ferrous Sulfate 325 MG Tablet PO SCH ×2 (09:17→23:04)
[2018-07-12 11:23] LABS: Baso % (Auto) 0.4 % (0.0-2.0); Eos # (Auto) 0.1 th/mm3 (0.0-0.4); Hematocrit 30.6 % (35.0-46.0); Hemoglobin 9.8 gm/dL (11.6-15.3); Lymph # (Auto) 2.7 th/mm3 (1.0-4.8); Lymph % (Auto) 31.6 % (9.0-44.0); Mean Corpuscular Hemoglobin 24.8 pg (27.0-34.0); Mean Corpuscular Volume 77.5 fL (80.0-100.0); Mean Platelet Volume 7.7 fL (7.0-11.0); Mono # (Auto) 0.6 th/mm3 (0.0-0.9); Mono % (Auto) 7.5 % (0.0-8.0); Neut % (Auto) 59.5 % (16.0-70.0); Platelet Count 292 th/mm3 (150-450); Red Blood Count 3.95 mil/mm3 (4.00-5.30); Red Cell Distribution Width 17.3 % (11.6-17.2); White Blood Count 8.5 th/mm3 (4.0-11.0)
[2018-07-12 11:31] LABS: Alanine Aminotransferase 11 U/L (10-53); Anion Gap 7 meq/L (5-15); Aspartate Aminotransferase 18 U/L (15-37); Blood Urea Nitrogen 12 mg/dL (7-18); Calcium 8.3 mg/dL (8.5-10.1); Carbon Dioxide 26.3 meq/L (21.0-32.0); Chloride 112 meq/L (98-107); Glomerular Filtration Rate Greater Than 89 mL/min (>89); Glucose,Random 70 mg/dL (74-106); Potassium 4.1 meq/L (3.5-5.1); Sodium 145 meq/L (136-145)
[2018-07-12 11:33] LABS: Alkaline Phosphatase 93 U/L (45-117); Total Protein 7.5 g/dL (6.4-8.2)
[2018-07-12] MEDS: Enoxaparin Inj 40 MG/0.4 ML Syringe SQ SCH ×2 (12:46→15:21)
--- NOTE | 2018-07-12 15:13 | P.PN ---
Subjective Interval history: Patient doing well, patient reports that she does not get the high from the morphine that is not given in IV form. Patient is tolerating p.o., voiding/ stooling well. Patient desires us to resume her home gabapentin. Physical Exam Vital signs: Vital Signs 07/11/18 16:00 07/11/18 20:00 07/12/18 00:00 Temperature 97.5 F L 98.2 F 98.0 F Pulse Rate 76 65 64 Respiratory Rate 20 20 20 Blood Pressure 137/80 135/77 137/80 Pulse Oximetry 100 98 98 07/12/18 02:20 07/12/18 04:00 07/12/18 08:00 Temperature 97.6 F 97.9 F Pulse Rate 87 66 91 H Respiratory Rate 20 20 Blood Pressure 129/77 136/84 Pulse Oximetry 99 98 Intake & Output 07/11/18 07/12/18 07/12/18 18:59 06:59 18:59 Intake Total 2770 / 2770 50 / 50 50 / 50 Balance 2770 / 2770 50 / 50 50 / 50 Weight 70.5 kg Intake: IV 2049 / 0 50 / 50 50 / 50 NS Inj 1,000 ML @ 100 mls/hr IV 1999 / 1999 .CONT .Q10H [facility] Rx#:[id number] Ancef 2 GM Premix Inj 2 gm In 50 / 50 50 / 50 50 / 50 50 ml @ 100 mls/hr IV.SIG Q8H [facility] Rx#:[id number] Oral 720 / 720 Other: # Voids 3 2 Date of Last Bowel Movement 07/10/18 07/11/18 Narrative: GENERAL: Thin female, in no acute distress, lying comfortably in bed, no sx of WD SKIN: Warm and dry. HEENT: Normocephalic. No scleral icterus. No injection or drainage. PERRLA, MOM. NECK: Supple, trachea midline. No JVD or lymphadenopathy. CARDIOVASCULAR: Regular rate and rhythm, 2/6 systolic ejection murmur at tricuspid region. RESPIRATORY: Breath sounds equal bilaterally. No accessory muscle use. GASTROINTESTINAL: Abdomen soft, non-tender, nondistended. MUSCULOSKELETAL: No cyanosis, or edema. BACK: Nontender without obvious deformity. No CVA tenderness. NEURO: AAO x3, no focal deficits, pleasant and cooperative Results - Labs CBC & Chem 7: 07/12/18 09:50 07/12/18 09:50 Laboratory Results - last 24 hr 07/12/18 07/12/18 09:50 09:50 WBC 8.5 RBC 3.95 L Hgb 9.8 L Hct 30.6 L MCV 77.5 L MCH 24.8 L MCHC 32.0 RDW 17.3 H Plt Count 292 D MPV 7.7 Neut % (Auto) 59.5 Lymph % (Auto) 31.6 [place] % (Auto) 7.5 Eos % (Auto) 1.0 Baso % (Auto) 0.4 Neut # (Auto) 5.0 Lymph # (Auto) 2.7 [place] # (Auto) 0.6 Eos # (Auto) 0.1 Baso # (Auto) 0.0 WBC Differential . Differential Comment Auto diff final Sodium 145 Potassium 4.1 Chloride 112 H Carbon Dioxide 26.3 Anion Gap 7 BUN 12 Creatinine 0.68 Estimated GFR Greater than 89 Random Glucose 70 L Calcium 8.3 L Total Bilirubin Less than 0.1 L AST 18 ALT 11 Alkaline Phosphatase 93 Total Protein 7.5 Albumin 2.0 L Microbiology 07/09/18 15:16 Blood - Peripheral Aerobic Blood Culture - Preliminary No growth in 3 days 07/09/18 15:16 Blood - Peripheral Anaerobic Blood Culture - Preliminary No growth in 3 days 07/09/18 15:10 Blood - Peripheral Aerobic Blood Culture - Preliminary No growth in 3 days 07/09/18 15:10 Blood - Peripheral Anaerobic Blood Culture - Preliminary No growth in 3 days Assessment and Plan - Assessment (1) Sepsis Code(s): A41.9 - Sepsis, unspecified organism Status: Acute (2) Urinary tract infection Code(s): N39.0 - Urinary tract infection, site not specified Status: Ruled- out (3) Community acquired pneumonia Code(s): J18.9 - Pneumonia, unspecified organism Status: Acute - Plan This is a 28-year-old F admitted secondary to community acquired pneumonia, UTI , and sepsis with a history of IV drug abuse and infective endocarditis, HD#7 1. Community Acquired Pneumonia/Sepsis/Bacteremia CXR indicative of pneumonia with +Bld Cx Continue Ancef IV Bld Cx x4 from 07/06, +MSSA Rpt Bld Cx from 07/09, NG at 3 days x4 Urine Cx from 07/06, NG at 48hrs, final Appreciate ID assistance with management 2. Opioid Withdrawal VSS, no acitve sdx of WD UDS +opiates Hx of active Heroin use Continue Morphine PO BID and Ativan [id number] IV Morphine discontinued on 07/11 after receiving it x5 days, patient desires IV form as she reports that he gives her the same high as heroin, patient was advised that we will assist with helping her avoid withdrawal with PO meds but that we will not be continuing IV Morphine. PO Morphine spaced out today from Q8 to Q12. Will monitor for WD sx. 3. Costochondritis, improved Exacerbated by her cough Did not respond well to ibuprofen Continuing Tessalon Perles PRN s/p Solu-Medrol 125 mg IVx1 4. Infective Endocarditis Recently treated for tricuspid endocarditis but did not complete treatment as she had her PICC line removed. Repeat echo demonstrates persistent endocarditis. Continue Ancef IV Appreciate Infectious Disease assistance with management ID Reccs 07/09: Stop vancomycin. Begin Ancef 2 g IV every 8 hours. Plan on treatment for 6 weeks. Stop piperacillin/tazobactam. Repeat blood cultures today. Follow clinical status. She is at very high risk for continued deterioration if she is not treated completely for endocarditis and therefore, I do not think she is a candidate for outpatient treatment of endocarditis. The patient has been noncompliant and that is the reason for recurrence of endocarditis. 5. Anemia Hgb 9.8 from 8.7 yesterday s/p transfusion for Hgb 6.8 on 07/08 Will follow up CBC in AM Cont. FeSulfate 6. DVT Prophylaxis: Lovenox 7. Dispo: Cont. IP ABX and F/U ID recommendations Code Status: full Discussed Condition With: Patient, RN, director case management, and mother at bedside (1) Sepsis Qualifiers: Sepsis type: sepsis due to unspecified organism Qualified Code(s): A41.9 - Sepsis, unspecified organism (2) Urinary tract infection Qualifiers: Urinary tract infection type: acute cystitis Hematuria presence: without hematuria Qualified Code(s): N30.00 - Acute cystitis without hematuria (3) Community acquired pneumonia Qualifiers: Laterality: left Lung location: lower lobe of lung Qualified Code(s): J18.1 - Lobar pneumonia, unspecified organism
[2018-07-12] MEDS: Gabapentin 300 MG Capsule PO SCH (17:31)
[2018-07-12] MEDS ORDERED: Morphine Sulfate 15 MG SR Tablet PO SCH (21:00)
[2018-07-13] MEDS: ceFAZolin 2 GM Premix Inj 2 GM/50 ML PIGGYBACK IV.SIG SCH ×3 (04:17→20:54)
[2018-07-13] MEDS: LORazepam 0.5 MG Tablet PO PRN ×4 (06:31→18:28)
[2018-07-13 07:42] LABS: Alanine Aminotransferase 9 U/L (10-53); Albumin 1.8 g/dL (3.4-5.0); Anion Gap 6 meq/L (5-15); Aspartate Aminotransferase 16 U/L (15-37); Blood Urea Nitrogen 12 mg/dL (7-18); Calcium 7.9 mg/dL (8.5-10.1); Carbon Dioxide 24.6 meq/L (21.0-32.0); Chloride 110 meq/L (98-107); Glomerular Filtration Rate Greater Than 89 mL/min (>89); Glucose,Random 70 mg/dL (74-106); Potassium 4.2 meq/L (3.5-5.1)
[2018-07-13 07:45] LABS: Alkaline Phosphatase 91 U/L (45-117); Total Protein 7.2 g/dL (6.4-8.2)
[2018-07-13 08:24] LABS: Sodium 141 meq/L (136-145)
[2018-07-13] MEDS: Ferrous Sulfate 325 MG Tablet PO SCH ×2 (08:53→20:54)
[2018-07-13] MEDS: Lactobacillus Acidophilus/L. Spores Tablet PO SCH ×3 (08:53→17:07)
[2018-07-13] MEDS: Gabapentin 300 MG Capsule PO SCH ×3 (08:54→17:08)
[2018-07-13] MEDS: Sodium Chloride 0.9% 2 ML Flush BID IV.FLUSH SCH ×2 (08:54→20:55)
[2018-07-13 11:04] LABS: Baso # (Auto) 0.1 th/mm3 (0.0-0.2); Baso % (Auto) 0.9 % (0.0-2.0); Eos # (Auto) 0.1 th/mm3 (0.0-0.4); Eos % (Auto) 1.5 % (0.0-4.0); Hematocrit 28.9 % (35.0-46.0); Hemoglobin 9.1 gm/dL (11.6-15.3); Lymph # (Auto) 2.1 th/mm3 (1.0-4.8); Lymph % (Auto) 27.7 % (9.0-44.0); Mean Corpuscular HGB Conc 31.6 % (32.0-36.0); Mean Corpuscular Hemoglobin 24.5 pg (27.0-34.0); Mean Corpuscular Volume 77.5 fL (80.0-100.0); Mean Platelet Volume 6.8 fL (7.0-11.0); Mono # (Auto) 0.6 th/mm3 (0.0-0.9); Neut # (Auto) 4.8 th/mm3 (1.8-7.7); Neut % (Auto) 61.9 % (16.0-70.0); Platelet Count 320 th/mm3 (150-450); Red Blood Count 3.73 mil/mm3 (4.00-5.30); Red Cell Distribution Width 17.1 % (11.6-17.2); White Blood Count 7.7 th/mm3 (4.0-11.0)
[2018-07-13] MEDS: Enoxaparin Inj 40 MG/0.4 ML Syringe SQ SCH (12:23)
--- NOTE | 2018-07-13 14:28 | P.PN ---
Subjective Interval history: Patient doing well. Reports that she is sorry for being caught with the IVs yesterday and that she has not used any drugs since. Patient is tolerating p.o. , voiding/stooling well. Patient reports improved mood this a.m. Physical Exam Vital signs: Vital Signs 07/12/18 16:00 07/12/18 20:00 07/12/18 20:01 Temperature 97.9 F 97.9 F Pulse Rate 75 86 84 Respiratory Rate 20 20 Blood Pressure 128/80 144/94 H Pulse Oximetry 98 98 07/12/18 23:59 07/13/18 00:00 07/13/18 04:00 Temperature 98.1 F 98.3 F Pulse Rate 75 84 70 Respiratory Rate 20 20 Blood Pressure 140/88 131/87 Pulse Oximetry 96 98 07/13/18 04:43 07/13/18 08:00 07/13/18 12:00 Temperature 98.1 F 98.3 F Pulse Rate 74 72 65 Respiratory Rate 24 20 Blood Pressure 122/77 119/83 Pulse Oximetry 99 99 07/13/18 13:14 Temperature Pulse Rate Respiratory Rate 16 Blood Pressure Pulse Oximetry Intake & Output 07/12/18 07/13/18 07/13/18 18:59 06:59 18:59 Intake Total 700 / 700 100 / 100 50 / 50 Output Total 3 / 3 Balance 700 / 700 97 / 97 50 / 50 Weight 70.5 kg Intake: IV 100 / 100 100 / 100 50 / 50 Ancef 2 GM Premix Inj 2 gm In 100 / 100 100 / 100 50 / 50 50 ml @ 100 mls/hr IV.SIG Q8H [facility] Rx#:[id number] Oral 600 / 600 Output: Urine 3 / 3 Other: # Voids 4 Date of Last Bowel Movement 07/11/18 07/13/18 # Bowel Movements 4 Narrative: GENERAL: Thin female, in no acute distress, lying comfortably in bed, no sx of WD SKIN: Warm and dry. HEENT: Normocephalic. No scleral icterus. No injection or drainage. PERRLA, MOM. NECK: Supple, trachea midline. No JVD or lymphadenopathy. CARDIOVASCULAR: Regular rate and rhythm, 2/6 systolic ejection murmur at tricuspid region. RESPIRATORY: Breath sounds equal bilaterally. No accessory muscle use. GASTROINTESTINAL: Abdomen soft, non-tender, nondistended. MUSCULOSKELETAL: No cyanosis, or edema. BACK: Nontender without obvious deformity. No CVA tenderness. NEURO: AAO x3, no focal deficits, pleasant and cooperative Results - Labs CBC & Chem 7: 07/13/18 10:47 07/13/18 06:51 Laboratory Results - last 24 hr 07/13/18 07/13/18 06:51 10:47 WBC 7.7 RBC 3.73 L Hgb 9.1 L Hct 28.9 L MCV 77.5 L MCH 24.5 L MCHC 31.6 L RDW 17.1 Plt Count 320 MPV 6.8 L Neut % (Auto) 61.9 Lymph % (Auto) 27.7 [place] % (Auto) 8.0 Eos % (Auto) 1.5 Baso % (Auto) 0.9 Neut # (Auto) 4.8 Lymph # (Auto) 2.1 [place] # (Auto) 0.6 Eos # (Auto) 0.1 Baso # (Auto) 0.1 WBC Differential . Differential Comment Auto diff final Sodium 141 Potassium 4.2 Chloride 110 H Carbon Dioxide 24.6 Anion Gap 6 BUN 12 Creatinine 0.69 Estimated GFR Greater than 89 Random Glucose 70 L Calcium 7.9 L Total Bilirubin 0.1 L AST 16 ALT 9 L Alkaline Phosphatase 91 Total Protein 7.2 Albumin 1.8 L Microbiology 07/09/18 15:16 Blood - Peripheral Aerobic Blood Culture - Preliminary No growth in 4 days 07/09/18 15:16 Blood - Peripheral Anaerobic Blood Culture - Preliminary No growth in 4 days 07/09/18 15:10 Blood - Peripheral Aerobic Blood Culture - Preliminary No growth in 4 days 07/09/18 15:10 Blood - Peripheral Anaerobic Blood Culture - Preliminary No growth in 4 days Assessment and Plan - Assessment (1) Sepsis Code(s): A41.9 - Sepsis, unspecified organism Status: Acute (2) Urinary tract infection Code(s): N39.0 - Urinary tract infection, site not specified Status: Ruled- out (3) Community acquired pneumonia Code(s): J18.9 - Pneumonia, unspecified organism Status: Acute - Plan This is a 28-year-old F admitted secondary to community acquired pneumonia, UTI , and sepsis with a history of IV drug abuse and infective endocarditis, HD#8 1. Community Acquired Pneumonia/Sepsis/Bacteremia CXR indicative of pneumonia with +Bld Cx Continue Ancef IV stared on 07/09 Bld Cx x4 from 07/06, +MSSA Rpt Bld Cx from 07/09, NG at 4 days x4 Urine Cx from 07/06, NG at 48hrs, final Appreciate ID assistance with management 2. Opioid Withdrawal VSS, no active sx of WD UDS +opiates Hx of active Heroin use Continue Percocet 5/325 mg Q8hrs PRN and Ativan [id number], WILL NOT INCREASE DOSE OR FREQUENCY Patient on admission was getting Morphine however this was stopped due to illicit drug use at [place] during stay, read my note below of event from 07/12 Will monitor for WD sx RN found over 20 needles that had been stolen from the sharps container as well as multiple medications including heparin and Solu-Medrol morphine that were also in the sharps container. Patient confessed that she had been using these needles to shoot up medications into her peripheral IV. Patient did have a unknown visitor that the nurses were suspicious of that may have brought an additional needle with unknown meds as this needle is not a hospital needle. Patient is tearful upon confrontation from the nurse. Patient reports that she will no longer continue to do this and that she will follow the rules from this point forward. I have discussed my recommendations with the nurse, the patient has now lost her privileges for us to be managing her with morphine if she is going to also be using drugs illicitly. We will continue her Ativan as needed to avoid withdraw, and we will also stop her morphine and continue only a Percocet 5/325 mg p.o. every 8 hours as needed. We will do this to only avoid withdrawal, but the patient has lost all her privileges at this point to be getting anything stronger. We will search the patient's room periodically as needed, and the patient is now only allowed to have her children and her mother visit her. 3. Costochondritis, improved Exacerbated by her cough Did not respond well to ibuprofen Continuing Tessalon Perles PRN s/p Solu-Medrol 125 mg IVx1 4. Infective Endocarditis Recently treated for tricuspid endocarditis but did not complete treatment as she had her PICC line removed. Repeat echo demonstrates persistent endocarditis. Continue Ancef IV Appreciate Infectious Disease assistance with management ID Reccs 07/09: Stop vancomycin. Begin Ancef 2 g IV every 8 hours. Plan on treatment for 6 weeks. Stop piperacillin/tazobactam. Repeat blood cultures today. Follow clinical status. She is at very high risk for continued deterioration if she is not treated completely for endocarditis and therefore, I do not think she is a candidate for outpatient treatment of endocarditis. The patient has been noncompliant and that is the reason for recurrence of endocarditis. 5. Anemia Hgb 9.1 from 8.7 yesterday s/p transfusion for Hgb 6.8 on 07/08 Will follow up CBC in AM Cont. FeSulfate 6. DVT Prophylaxis: Lovenox 7. Dispo: Cont. IP ABX and F/U ID recommendations Code Status: full Discussed Condition With: patient, RN, CM (1) Sepsis Qualifiers: Sepsis type: sepsis due to unspecified organism Qualified Code(s): A41.9 - Sepsis, unspecified organism (2) Urinary tract infection Qualifiers: Urinary tract infection type: acute cystitis Hematuria presence: without hematuria Qualified Code(s): N30.00 - Acute cystitis without hematuria (3) Community acquired pneumonia Qualifiers: Laterality: left Lung location: lower lobe of lung Qualified Code(s): J18.1 - Lobar pneumonia, unspecified organism
[2018-07-13] MEDS: Benzonatate 100 MG Capsule PO PRN (20:55)
[2018-07-14] MEDS: ceFAZolin 2 GM Premix Inj 2 GM/50 ML PIGGYBACK IV.SIG SCH ×3 (03:51→22:00)
[2018-07-14] MEDS: LORazepam 0.5 MG Tablet PO PRN ×5 (03:51→21:13)
[2018-07-14] MEDS: Benzonatate 100 MG Capsule PO PRN ×2 (06:48→15:34)
[2018-07-14] MEDS: Ferrous Sulfate 325 MG Tablet PO SCH ×2 (08:08→21:14)
[2018-07-14] MEDS: Gabapentin 300 MG Capsule PO SCH ×3 (08:08→17:16)
[2018-07-14] MEDS: Lactobacillus Acidophilus/L. Spores Tablet PO SCH ×3 (08:08→17:16)
[2018-07-14] MEDS: Sodium Chloride 0.9% 2 ML Flush BID IV.FLUSH SCH ×2 (08:08→21:14)
[2018-07-14 10:03] LABS: Baso % (Auto) 0.4 % (0.0-2.0); Eos # (Auto) 0.1 th/mm3 (0.0-0.4); Eos % (Auto) 1.6 % (0.0-4.0); Hematocrit 33.8 % (35.0-46.0); Hemoglobin 10.9 gm/dL (11.6-15.3); Lymph # (Auto) 2.4 th/mm3 (1.0-4.8); Lymph % (Auto) 26.5 % (9.0-44.0); Mean Corpuscular HGB Conc 32.2 % (32.0-36.0); Mean Corpuscular Hemoglobin 25.2 pg (27.0-34.0); Mean Corpuscular Volume 78.1 fL (80.0-100.0); Mean Platelet Volume 7.4 fL (7.0-11.0); Mono # (Auto) 0.5 th/mm3 (0.0-0.9); Mono % (Auto) 5.5 % (0.0-8.0); Platelet Count 354 th/mm3 (150-450); Red Blood Count 4.33 mil/mm3 (4.00-5.30); Red Cell Distribution Width 17.3 % (11.6-17.2)
[2018-07-14 10:30] LABS: Alanine Aminotransferase 11 U/L (10-53); Albumin 2.6 g/dL (3.4-5.0); Alkaline Phosphatase 111 U/L (45-117); Anion Gap 5 meq/L (5-15); Aspartate Aminotransferase 13 U/L (15-37); Blood Urea Nitrogen 9 mg/dL (7-18); Carbon Dioxide 32.7 meq/L (21.0-32.0); Chloride 102 meq/L (98-107); Glomerular Filtration Rate 86 mL/min (>89); Glucose,Random 80 mg/dL (74-106); Potassium 4.6 meq/L (3.5-5.1); Sodium 140 meq/L (136-145); Total Protein 8.8 g/dL (6.4-8.2)
[2018-07-14] MEDS: Enoxaparin Inj 40 MG/0.4 ML Syringe SQ SCH (11:12)
--- NOTE | 2018-07-14 14:50 | P.PN ---
Subjective Interval history: Patient doing well. Reports that she has an improved mood and that she feels less anxious. She reports that she is sorry for illicitly using drugs while she is in the hospital. And she reports that she is trying to do what she can to get healthier. Patient is tolerating p.o., voiding/stooling well. Physical Exam Vital signs: Vital Signs 07/13/18 16:00 07/13/18 20:00 07/13/18 23:58 Temperature 98.7 F 98.5 F Pulse Rate 85 74 80 Respiratory Rate Blood Pressure 137/82 138/74 Pulse Oximetry 98 100 07/14/18 04:00 07/14/18 08:00 07/14/18 12:00 Temperature 98.4 F 98.0 F 97.9 F Pulse Rate 59 L 90 94 H Respiratory Rate Blood Pressure 133/88 126/62 118/60 Pulse Oximetry 98 100 98 Intake & Output 07/13/18 07/14/18 07/14/18 18:59 06:59 18:59 Intake Total 810 / 810 542 / 542 50 / 50 Balance 810 / 810 542 / 542 50 / 50 Weight 72.575 kg Intake: IV 50 / 50 100 / 100 50 / 50 Ancef 2 GM Premix Inj 2 gm In 50 / 50 100 / 100 50 / 50 50 ml @ 100 mls/hr IV.SIG Q8H [facility] Rx#:[id number] Oral 760 / 760 442 / 442 Other: # Voids 3 1 Date of Last Bowel Movement 07/13/18 07/13/18 07/13/18 # Bowel Movements 1 1 Narrative: GENERAL: Thin female, in no acute distress, lying comfortably in bed, no sx of WD SKIN: Warm and dry. HEENT: Normocephalic. No scleral icterus. No injection or drainage. PERRLA, MOM. NECK: Supple, trachea midline. No JVD or lymphadenopathy. CARDIOVASCULAR: Regular rate and rhythm, 2/6 systolic ejection murmur at tricuspid region. RESPIRATORY: Breath sounds equal bilaterally. No accessory muscle use. GASTROINTESTINAL: Abdomen soft, non-tender, nondistended. MUSCULOSKELETAL: No cyanosis, or edema. BACK: Nontender without obvious deformity. No CVA tenderness. NEURO: AAO x3, no focal deficits, pleasant and cooperative Results - Labs CBC & Chem 7: 07/14/18 08:23 07/14/18 08:23 Laboratory Results - last 24 hr 07/14/18 07/14/18 08:23 08:23 WBC 9.0 RBC 4.33 Hgb 10.9 L Hct 33.8 L MCV 78.1 L MCH 25.2 L MCHC 32.2 RDW 17.3 H Plt Count 354 MPV 7.4 Neut % (Auto) 66.0 Lymph % (Auto) 26.5 [place] % (Auto) 5.5 Eos % (Auto) 1.6 Baso % (Auto) 0.4 Neut # (Auto) 6.0 Lymph # (Auto) 2.4 [place] # (Auto) 0.5 Eos # (Auto) 0.1 Baso # (Auto) 0.0 WBC Differential . Differential Comment Auto diff final Sodium 140 Potassium 4.6 Chloride 102 D Carbon Dioxide 32.7 H Anion Gap 5 BUN 9 Creatinine 0.79 Estimated GFR 86 L Random Glucose 80 Calcium 9.0 D Total Bilirubin 0.3 AST 13 L ALT 11 Alkaline Phosphatase 111 Total Protein 8.8 H D Albumin 2.6 L D Microbiology 07/09/18 15:16 Blood - Peripheral Aerobic Blood Culture - Final No growth in 5 days 07/09/18 15:16 Blood - Peripheral Anaerobic Blood Culture - Final No growth in 5 days 07/09/18 15:10 Blood - Peripheral Aerobic Blood Culture - Final No growth in 5 days 07/09/18 15:10 Blood - Peripheral Anaerobic Blood Culture - Final No growth in 5 days Assessment and Plan - Assessment (1) Sepsis Code(s): A41.9 - Sepsis, unspecified organism Status: Resolved (2) Urinary tract infection Code(s): N39.0 - Urinary tract infection, site not specified Status: Ruled- out (3) Community acquired pneumonia Code(s): J18.9 - Pneumonia, unspecified organism Status: Acute - Plan This is a 28-year-old F admitted secondary to community acquired pneumonia, UTI , and sepsis with a history of IV drug abuse and infective endocarditis, HD#9 1. Community Acquired Pneumonia/Sepsis/Bacteremia CXR indicative of pneumonia with +Bld Cx Continue Ancef IV stared on 07/09 (needs 6wk txt due to infective endocarditis) Bld Cx x4 from 10/15, +MSSA Rpt Bld Cx from 07/09, NG at 5 days x4 Urine Cx from 07/06, NG at 48hrs, final Appreciate ID assistance with management 2. Opioid Withdrawal VSS, no active sx of WD UDS +opiates Hx of active Heroin use Continue Percocet 5/325 mg Q8hrs PRN and Ativan [id number], WILL NOT INCREASE DOSE OR FREQUENCY Patient on admission was getting Morphine however this was stopped due to illicit drug use at [place] during stay, read my note below of event from 07/12 Will monitor for WD sx RN found over 20 needles that had been stolen from the sharps container as well as multiple medications including heparin and Solu-Medrol morphine that were also in the sharps container. Patient confessed that she had been using these needles to shoot up medications into her peripheral IV. Patient did have a unknown visitor that the nurses were suspicious of that may have brought an additional needle with unknown meds as this needle is not a hospital needle. Patient is tearful upon confrontation from the nurse. Patient reports that she will no longer continue to do this and that she will follow the rules from this point forward. I have discussed my recommendations with the nurse, the patient has now lost her privileges for us to be managing her with morphine if she is going to also be using drugs illicitly. We will continue her Ativan as needed to avoid withdraw, and we will also stop her morphine and continue only a Percocet 5/325 mg p.o. every 8 hours as needed. We will do this to only avoid withdrawal, but the patient has lost all her privileges at this point to be getting anything stronger. We will search the patient's room periodically as needed, and the patient is now only allowed to have her children and her mother visit her. 3. Costochondritis, resolved Exacerbated by her cough Continuing Tessalon Perles PRN s/p Solu-Medrol 125 mg IVx1 4. Infective Endocarditis Recently treated for tricuspid endocarditis but did not complete outpatient treatment as she had her PICC line removed. Repeat echo demonstrates persistent endocarditis Continue Ancef IV, will need IP txt for 6wks, patient has a high risk of continued deterioration Appreciate Infectious Disease assistance with management ID Reccs 07/09: Stop vancomycin. Begin Ancef 2 g IV every 8 hours. Plan on treatment for 6 weeks. Stop piperacillin/tazobactam. Repeat blood cultures today. Follow clinical status. She is at very high risk for continued deterioration if she is not treated completely for endocarditis and therefore, I do not think she is a candidate for outpatient treatment of endocarditis. The patient has been noncompliant and that is the reason for recurrence of endocarditis. 5. Anemia Hgb 10.9 today from 9.1 s/p transfusion for Hgb 6.8 on 07/08 Will follow up CBC in AM Cont. FeSulfate 6. DVT Prophylaxis: Lovenox 7. Dispo: Cont. IP ABX to complete 6wks, F/U ID recommendations Code Status: full Discussed Condition With: patient, RN (1) Sepsis Qualifiers: Sepsis type: sepsis due to unspecified organism Qualified Code(s): A41.9 - Sepsis, unspecified organism (2) Urinary tract infection Qualifiers: Urinary tract infection type: acute cystitis Hematuria presence: without hematuria Qualified Code(s): N30.00 - Acute cystitis without hematuria (3) Community acquired pneumonia Qualifiers: Laterality: left Lung location: lower lobe of lung Qualified Code(s): J18.1 - Lobar pneumonia, unspecified organism
[2018-07-15] MEDS: ceFAZolin 2 GM Premix Inj 2 GM/50 ML PIGGYBACK IV.SIG SCH ×3 (03:18→20:45)
[2018-07-15] MEDS: LORazepam 0.5 MG Tablet PO PRN ×5 (03:18→20:45)
[2018-07-15] MEDS: Benzonatate 100 MG Capsule PO PRN ×3 (03:27→20:51)
[2018-07-15] MEDS: Sodium Chloride 0.9% 2 ML Flush BID IV.FLUSH SCH ×2 (08:12→20:45)
[2018-07-15] MEDS: Gabapentin 300 MG Capsule PO SCH ×3 (08:12→18:17)
[2018-07-15] MEDS: Ferrous Sulfate 325 MG Tablet PO SCH ×2 (08:12→20:45)
[2018-07-15] MEDS: Lactobacillus Acidophilus/L. Spores Tablet PO SCH ×3 (08:12→18:16)
[2018-07-15 10:54] LABS: Baso # (Auto) 0.1 th/mm3 (0.0-0.2); Baso % (Auto) 0.6 % (0.0-2.0); Eos # (Auto) 0.2 th/mm3 (0.0-0.4); Eos % (Auto) 1.9 % (0.0-4.0); Hematocrit 35.8 % (35.0-46.0); Hemoglobin 11.4 gm/dL (11.6-15.3); Lymph # (Auto) 2.2 th/mm3 (1.0-4.8); Mean Corpuscular HGB Conc 31.8 % (32.0-36.0); Mean Corpuscular Hemoglobin 25.2 pg (27.0-34.0); Mean Corpuscular Volume 79.2 fL (80.0-100.0); Mean Platelet Volume 6.7 fL (7.0-11.0); Mono # (Auto) 0.4 th/mm3 (0.0-0.9); Mono % (Auto) 5.1 % (0.0-8.0); Neut # (Auto) 5.3 th/mm3 (1.8-7.7); Neut % (Auto) 65.4 % (16.0-70.0); Platelet Count 411 th/mm3 (150-450); Red Blood Count 4.51 mil/mm3 (4.00-5.30); Red Cell Distribution Width 18.3 % (11.6-17.2); White Blood Count 8.1 th/mm3 (4.0-11.0)
[2018-07-15 11:18] LABS: Alanine Aminotransferase 10 U/L (10-53); Albumin 2.8 g/dL (3.4-5.0); Anion Gap 7 meq/L (5-15); Aspartate Aminotransferase 12 U/L (15-37); Blood Urea Nitrogen 8 mg/dL (7-18); Carbon Dioxide 29.3 meq/L (21.0-32.0); Chloride 104 meq/L (98-107); Glomerular Filtration Rate Greater Than 89 mL/min (>89); Glucose,Random 69 mg/dL (74-106); Potassium 4.3 meq/L (3.5-5.1); Sodium 140 meq/L (136-145)
[2018-07-15 11:21] LABS: Alkaline Phosphatase 112 U/L (45-117); Total Protein 8.8 g/dL (6.4-8.2)
[2018-07-15] MEDS: Enoxaparin Inj 40 MG/0.4 ML Syringe SQ SCH (12:38)
--- NOTE | 2018-07-15 17:58 | P.PN ---
Subjective Interval history: Patient doing well. She is tolerating p.o., voiding/stooling well. Patient reports that she does not have any withdrawal symptoms. Patient is adamant that she wants to stay away from illicit drugs. Physical Exam Vital signs: Vital Signs 07/14/18 18:34 07/14/18 20:00 07/15/18 00:00 Temperature 98.8 F 97.3 F L Pulse Rate 98 H 75 53 L Respiratory Rate 18 18 Blood Pressure 116/74 132/75 Pulse Oximetry 99 99 07/15/18 00:05 07/15/18 03:15 07/15/18 04:45 Temperature 98.2 F Pulse Rate 56 L 92 H 83 Respiratory Rate 18 Blood Pressure 130/77 Pulse Oximetry 99 07/15/18 08:00 07/15/18 12:00 Temperature 98.7 F 98.7 F Pulse Rate 94 H 95 H Respiratory Rate 20 22 Blood Pressure 119/72 109/79 Pulse Oximetry 100 99 Intake & Output 07/14/18 07/15/18 07/15/18 18:59 06:59 18:59 Intake Total 1010 / 1010 100 / 100 50 / 50 Balance 1010 / 1010 100 / 100 50 / 50 Weight 67.4 kg Intake: IV 50 / 50 100 / 100 50 / 50 Ancef 2 GM Premix Inj 2 gm In 50 / 50 100 / 100 50 / 50 50 ml @ 100 mls/hr IV.SIG Q8H [facility] Rx#:[id number] Oral 960 / 960 Other: # Voids 1 4 Date of Last Bowel Movement 07/13/18 07/14/18 07/13/18 # Bowel Movements 1 Narrative: GENERAL: Thin female, in no acute distress, lying comfortably in bed, no sx of WD SKIN: Warm and dry. HEENT: Normocephalic. No scleral icterus. No injection or drainage. PERRLA, MOM. NECK: Supple, trachea midline. No JVD or lymphadenopathy. CARDIOVASCULAR: Regular rate and rhythm, 2/6 systolic ejection murmur at tricuspid region. RESPIRATORY: Breath sounds equal bilaterally. No accessory muscle use. GASTROINTESTINAL: Abdomen soft, non-tender, nondistended. MUSCULOSKELETAL: No cyanosis, or edema. BACK: Nontender without obvious deformity. No CVA tenderness. NEURO: AAO x3, no focal deficits, pleasant and cooperative Results - Labs CBC & Chem 7: 07/15/18 10:10 07/15/18 09:49 Laboratory Results - last 24 hr 07/15/18 07/15/18 09:49 10:10 WBC 8.1 RBC 4.51 Hgb 11.4 L Hct 35.8 MCV 79.2 L MCH 25.2 L MCHC 31.8 L RDW 18.3 H Plt Count 411 MPV 6.7 L Neut % (Auto) 65.4 Lymph % (Auto) 27.0 [place] % (Auto) 5.1 Eos % (Auto) 1.9 Baso % (Auto) 0.6 Neut # (Auto) 5.3 Lymph # (Auto) 2.2 [place] # (Auto) 0.4 Eos # (Auto) 0.2 Baso # (Auto) 0.1 WBC Differential . Differential Comment Auto diff final Sodium 140 Potassium 4.3 Chloride 104 Carbon Dioxide 29.3 Anion Gap 7 BUN 8 Creatinine 0.71 Estimated GFR Greater than 89 Random Glucose 69 L Calcium 9.0 Total Bilirubin 0.2 AST 12 L ALT 10 Alkaline Phosphatase 112 Total Protein 8.8 H Albumin 2.8 L Assessment and Plan - Assessment (1) Sepsis Code(s): A41.9 - Sepsis, unspecified organism Status: Resolved (2) Urinary tract infection Code(s): N39.0 - Urinary tract infection, site not specified Status: Ruled- out (3) Community acquired pneumonia Code(s): J18.9 - Pneumonia, unspecified organism Status: Resolved - Plan This is a 28-year-old F admitted secondary to community acquired pneumonia, UTI , and sepsis with a history of IV drug abuse and infective endocarditis, HD#10 1. Infective Endocarditis/Bacteremia Recently treated for tricuspid endocarditis but did not complete outpatient treatment as she had her PICC line removed. Repeat echo demonstrates persistent endocarditis Continue Ancef IV, will need IP txt for 6wks, patient has a high risk of continued deterioration Appreciate Infectious Disease assistance with management Continue Ancef IV stared on 07/09 (needs 6wk txt due to infective endocarditis) Bld Cx x4 from 07/06, +MSSA Rpt Bld Cx from 07/09, NG at 5 days x4 Urine Cx from 07/06, NG at 48hrs, final Appreciate ID assistance with management ID Reccs 07/09: Stop vancomycin. Begin Ancef 2 g IV every 8 hours. Plan on treatment for 6 weeks. Stop piperacillin/tazobactam. Repeat blood cultures today. Follow clinical status. She is at very high risk for continued deterioration if she is not treated completely for endocarditis and therefore, I do not think she is a candidate for outpatient treatment of endocarditis. The patient has been noncompliant and that is the reason for recurrence of endocarditis. 2. Opioid Withdrawal/Chronic Back Pain VSS, no active sx of WD UDS +opiates Hx of active Heroin use Continue Percocet 5/325 mg Q8hrs PRN and Ativan [id number], WILL NOT INCREASE DOSE OR FREQUENCY Cont. home Gabapentin Patient was caught using needles from the sharps container, read my note from for details Will monitor for WD sx Advised patient that tomorrow we will wean down to Q12 hours and then daily, etc. 3. Community Acquired Pneumonia/Sepsis, resolved CXR indicative of pneumonia on admission s/p txt with Ancef (still on ABX due to endocarditis) 4. Anemia, iron deficiency Diagnosed per iron studies Hgb 11.4 today from 10.9 s/p transfusion for Hgb 6.8 on 07/08 Will follow up CBC in AM Cont. FeSulfate 6. DVT Prophylaxis: Lovenox 7. Dispo: Cont. IP ABX to complete 6wks, F/U ID recommendations Code Status: full Discussed Condition With: patient, RN (1) Sepsis Qualifiers: Sepsis type: sepsis due to unspecified organism Qualified Code(s): A41.9 - Sepsis, unspecified organism (2) Urinary tract infection Qualifiers: Urinary tract infection type: acute cystitis Hematuria presence: without hematuria Qualified Code(s): N30.00 - Acute cystitis without hematuria (3) Community acquired pneumonia Qualifiers: Laterality: left Lung location: lower lobe of lung Qualified Code(s): J18.1 - Lobar pneumonia, unspecified organism
[2018-07-16] MEDS: LORazepam 0.5 MG Tablet PO PRN ×4 (04:53→19:37)
[2018-07-16] MEDS: ceFAZolin 2 GM Premix Inj 2 GM/50 ML PIGGYBACK IV.SIG SCH ×3 (04:53→20:37)
[2018-07-16] MEDS: Gabapentin 300 MG Capsule PO SCH ×3 (08:27→18:31)
[2018-07-16] MEDS: Ferrous Sulfate 325 MG Tablet PO SCH ×2 (08:27→20:37)
[2018-07-16] MEDS: Lactobacillus Acidophilus/L. Spores Tablet PO SCH ×3 (08:27→18:31)
[2018-07-16] MEDS: Sodium Chloride 0.9% 2 ML Flush BID IV.FLUSH SCH ×2 (08:41→20:39)
[2018-07-16 09:10] LABS: Alanine Aminotransferase 8 U/L (10-53); Albumin 2.6 g/dL (3.4-5.0); Anion Gap 9 meq/L (5-15); Aspartate Aminotransferase 16 U/L (15-37); Blood Urea Nitrogen 13 mg/dL (7-18); Carbon Dioxide 24.8 meq/L (21.0-32.0); Chloride 102 meq/L (98-107); Glomerular Filtration Rate Greater Than 89 mL/min (>89); Glucose,Random 70 mg/dL (74-106); Potassium 4.9 meq/L (3.5-5.1); Sodium 136 meq/L (136-145)
[2018-07-16 09:13] LABS: Alkaline Phosphatase 101 U/L (45-117); Total Protein 8.6 g/dL (6.4-8.2)
[2018-07-16 10:00] LABS: Baso # (Auto) 0.1 th/mm3 (0.0-0.2); Baso % (Auto) 0.7 % (0.0-2.0); Eos # (Auto) 0.1 th/mm3 (0.0-0.4); Eos % (Auto) 1.2 % (0.0-4.0); Hematocrit 33.9 % (35.0-46.0); Lymph # (Auto) 2.4 th/mm3 (1.0-4.8); Lymph % (Auto) 25.6 % (9.0-44.0); Mean Corpuscular HGB Conc 32.4 % (32.0-36.0); Mean Corpuscular Volume 83.1 fL (80.0-100.0); Mean Platelet Volume 7.1 fL (7.0-11.0); Mono # (Auto) 0.7 th/mm3 (0.0-0.9); Mono % (Auto) 7.1 % (0.0-8.0); Neut # (Auto) 6.1 th/mm3 (1.8-7.7); Neut % (Auto) 65.4 % (16.0-70.0); Platelet Count 304 th/mm3 (150-450); Red Blood Count 4.08 mil/mm3 (4.00-5.30); Red Cell Distribution Width 19.1 % (11.6-17.2); White Blood Count 9.3 th/mm3 (4.0-11.0)
[2018-07-16] MEDS: Enoxaparin Inj 40 MG/0.4 ML Syringe SQ SCH (11:18)
[2018-07-16] MEDS: Benzonatate 100 MG Capsule PO PRN (11:42)
--- NOTE | 2018-07-16 12:51 | P.PNIM ---
Subjective Interval history: Patient reports she is feeling okay today. She is adjusting to the decrease frequency of pain medication. We had an extensive discussion about her current condition. She expressed understanding of her situation and states that she is motivated to stay clean. Physical Exam Vital signs: Vital Signs 07/15/18 20:00 07/16/18 00:00 07/16/18 03:48 Temperature 98.2 F 98.2 F Pulse Rate 101 H 86 89 Respiratory Rate 20 20 Blood Pressure 117/60 111/60 Pulse Oximetry 99 100 07/16/18 04:00 07/16/18 08:00 07/16/18 11:07 Temperature 98 F 98.1 F Pulse Rate 82 105 H 79 Respiratory Rate 18 24 Blood Pressure 112/63 123/67 Pulse Oximetry 99 97 07/16/18 11:29 Temperature 99.0 F Pulse Rate 90 Respiratory Rate 18 Blood Pressure 113/61 Pulse Oximetry 99 Intake & Output 07/15/18 07/16/18 07/16/18 18:59 06:59 18:59 Intake Total 1850 / 1850 100 / 100 50 / 50 Balance 1850 / 1850 100 / 100 50 / 50 Weight 63.8 kg Intake: IV 50 / 50 100 / 100 50 / 50 Ancef 2 GM Premix Inj 2 gm In 50 / 50 100 / 100 50 / 50 50 ml @ 100 mls/hr IV.SIG Q8H [facility] Rx#:[id number] Oral 1800 / 1800 Other: # Voids 1 Date of Last Bowel Movement 07/13/18 07/15/18 07/15/18 # Bowel Movements 1 Narrative: GENERAL: Thin female, in no acute distress, lying comfortably in bed, no sx of WD SKIN: Warm and dry. HEENT: Normocephalic. No scleral icterus. No injection or drainage. PERRLA, MOM. NECK: Supple, trachea midline. No JVD or lymphadenopathy. CARDIOVASCULAR: Regular rate and rhythm, 2/6 systolic ejection murmur at tricuspid region. RESPIRATORY: Breath sounds equal bilaterally. No accessory muscle use. GASTROINTESTINAL: Abdomen soft, non-tender, nondistended. MUSCULOSKELETAL: No cyanosis, or edema. BACK: Nontender without obvious deformity. No CVA tenderness. NEURO: AAO x3, no focal deficits, pleasant and cooperative Results - Labs CBC & Chem 7: 07/16/18 06:43 07/16/18 06:43 Laboratory Results - last 24 hr 07/16/18 07/16/18 06:43 06:43 WBC 9.3 RBC 4.08 Hgb 11.0 L Hct 33.9 L MCV 83.1 D MCH 27.0 MCHC 32.4 RDW 19.1 H Plt Count 304 MPV 7.1 Neut % (Auto) 65.4 Lymph % (Auto) 25.6 [place] % (Auto) 7.1 Eos % (Auto) 1.2 Baso % (Auto) 0.7 Neut # (Auto) 6.1 Lymph # (Auto) 2.4 [place] # (Auto) 0.7 Eos # (Auto) 0.1 Baso # (Auto) 0.1 WBC Differential . Differential Comment Auto diff final Sodium 136 Potassium 4.9 Chloride 102 Carbon Dioxide 24.8 Anion Gap 9 BUN 13 Creatinine 0.74 Estimated GFR Greater than 89 Random Glucose 70 L Calcium 9.0 Total Bilirubin 0.2 AST 16 ALT 8 L Alkaline Phosphatase 101 Total Protein 8.6 H Albumin 2.6 L Assessment and Plan - Assessment (1) Sepsis Code(s): A41.9 - Sepsis, unspecified organism Status: Resolved (2) Urinary tract infection Code(s): N39.0 - Urinary tract infection, site not specified Status: Ruled- out (3) Community acquired pneumonia Code(s): J18.9 - Pneumonia, unspecified organism Status: Resolved - Plan 28-year-old F admitted secondary to community acquired pneumonia, UTI, and sepsis with a history of IV drug abuse and infective endocarditis 1. Infective Endocarditis/Bacteremia Recently treated for tricuspid endocarditis but did not complete outpatient treatment as she had her PICC line removed. Repeat echo demonstrates persistent endocarditis Continue Ancef IV, will need IP txt for 6wks, patient has a high risk of continued deterioration Appreciate Infectious Disease assistance with management Continue Ancef IV stared on 07/09 (needs 6wk txt due to infective endocarditis) Bld Cx x4 from 07/06, +MSSA Rpt Bld Cx from 07/09, NG at 5 days x4 Urine Cx from 07/06, NG at 48hrs, final Appreciate ID assistance with management 2. Opioid Withdrawal/Chronic Back Pain VSS, no active sx of WD UDS +opiates Hx of active Heroin use Percocet is slowly being weaned off. Patient down to 1 tab of 5/325 every 12 hours and Ativan every 4 hours as needed. Discussed with the patient the goal is to completely wean her off all Narcotics and Benzo. Plan to discontinue Percocet in 2 days. Cont. home Gabapentin Patient was caught using needles from the sharps container, details per Dr. Jackman note on 07/12 Will monitor for WD sx 3. Community Acquired Pneumonia/Sepsis, resolved CXR indicative of pneumonia on admission s/p txt with Ancef (still on ABX due to endocarditis) 4. Anemia, iron deficiency Diagnosed per iron studies s/p transfusion for Hgb 6.8 on 07/08 H&H stable. Follow as needed. Cont. FeSulfate 6. DVT Prophylaxis: Lovenox 7. Dispo: Cont. IP ABX to complete 6wks, F/U ID recommendations (1) Sepsis Qualifiers: Sepsis type: sepsis due to unspecified organism Qualified Code(s): A41.9 - Sepsis, unspecified organism (2) Urinary tract infection Qualifiers: Urinary tract infection type: acute cystitis Hematuria presence: without hematuria Qualified Code(s): N30.00 - Acute cystitis without hematuria (3) Community acquired pneumonia Qualifiers: Laterality: left Lung location: lower lobe of lung Qualified Code(s): J18.1 - Lobar pneumonia, unspecified organism
[2018-07-17] MEDS: ceFAZolin 2 GM Premix Inj 2 GM/50 ML PIGGYBACK IV.SIG SCH ×3 (05:59→21:25)
[2018-07-17] MEDS: LORazepam 0.5 MG Tablet PO PRN ×3 (06:03→18:14)
[2018-07-17] MEDS: Ferrous Sulfate 325 MG Tablet PO SCH ×2 (08:50→21:25)
[2018-07-17] MEDS: Lactobacillus Acidophilus/L. Spores Tablet PO SCH ×3 (08:51→18:12)
[2018-07-17] MEDS: Gabapentin 300 MG Capsule PO SCH ×3 (08:51→18:12)
[2018-07-17] MEDS: Sodium Chloride 0.9% 2 ML Flush BID IV.FLUSH SCH ×2 (08:52→21:27)
--- NOTE | 2018-07-17 11:10 | P.PNIM ---
Subjective Interval history: Patient is very tearful again today. Reports overnight that she locked herself in the bathroom. She reports she was just having a bowel movement. Physical Exam Vital signs: Vital Signs 07/16/18 11:29 07/16/18 16:00 07/17/18 00:00 Temperature 99.0 F 98.3 F 98.2 F Pulse Rate 90 71 107 H Respiratory Rate 18 20 18 Blood Pressure 113/61 103/67 117/81 Pulse Oximetry 99 100 96 07/17/18 04:00 07/17/18 07:37 07/17/18 08:00 Temperature 97.8 F 97.7 F Pulse Rate 82 80 81 Respiratory Rate 18 18 Blood Pressure 106/57 L 121/65 Pulse Oximetry 99 99 Intake & Output 07/16/18 07/17/18 07/17/18 18:59 06:59 18:59 Intake Total 50 / 50 100 / 100 Output Total Balance 50 / 50 99 / 99 Weight 64.2 kg Intake: IV 50 / 50 100 / 100 Ancef 2 GM Premix Inj 2 gm In 50 / 50 100 / 100 50 ml @ 100 mls/hr IV.SIG Q8H [facility] Rx#:[id number] Output: Urine/Stool Mix Other: Date of Last Bowel Movement 07/16/18 07/17/18 07/15/18 # Bowel Movements 2 Narrative: GENERAL: Thin female, in no acute distress, lying comfortably in bed, no sx of WD CARDIOVASCULAR: Regular rate and rhythm, 2/6 systolic ejection murmur at tricuspid region. RESPIRATORY: Breath sounds equal bilaterally. No accessory muscle use. GASTROINTESTINAL: Abdomen soft, non-tender, nondistended. MUSCULOSKELETAL: No cyanosis, or edema. BACK: Nontender without obvious deformity. No CVA tenderness. NEURO: AAO x3, no focal deficits Results - Labs CBC & Chem 7: 07/16/18 06:43 07/16/18 06:43 Assessment and Plan - Assessment (1) Sepsis Code(s): A41.9 - Sepsis, unspecified organism Status: Resolved (2) Urinary tract infection Code(s): N39.0 - Urinary tract infection, site not specified Status: Ruled- out (3) Community acquired pneumonia Code(s): J18.9 - Pneumonia, unspecified organism Status: Resolved - Plan 28-year-old F admitted secondary to community acquired pneumonia, UTI, and sepsis with a history of IV drug abuse and infective endocarditis 1. Infective Endocarditis/Bacteremia Recently treated for tricuspid endocarditis but did not complete outpatient treatment as she had her PICC line removed. Repeat echo demonstrates persistent endocarditis Continue Ancef IV, will need IP txt for 6wks, patient has a high risk of continued deterioration Appreciate Infectious Disease assistance with management Continue Ancef IV stared on 07/09 (needs 6wk txt due to infective endocarditis) Bld Cx x4 from 07/06, +MSSA Rpt Bld Cx from 07/09, NG at 5 days x4 Urine Cx from 07/06, NG at 48hrs, final Appreciate ID assistance with management 2. Opioid Withdrawal/Chronic Back Pain VSS, no active sx of WD UDS +opiates Hx of active Heroin use Percocet is slowly being weaned off. Discussed with the patient the goal is to completely wean her off all Narcotics and Benzo. Discontinue Percocet today. Cont. Gabapentin, increase the dose Patient was caught using needles from the sharps container, details per Dr. Jackman note on 07/12 Will monitor for WD sx 3. Community Acquired Pneumonia/Sepsis, resolved CXR indicative of pneumonia on admission s/p txt with Ancef (still on ABX due to endocarditis) 4. Anemia, iron deficiency Diagnosed per iron studies s/p transfusion for Hgb 6.8 on 07/08 H&H stable. Follow as needed. Cont. FeSulfate 6. DVT Prophylaxis: Lovenox 7. Dispo: Cont. IP ABX to complete 6wks, F/U ID recommendations. Patient reports her mother will be able to support her and then she is planning to go back to living with her mother. However have not seen her mother here. (1) Sepsis Qualifiers: Sepsis type: sepsis due to unspecified organism Qualified Code(s): A41.9 - Sepsis, unspecified organism (2) Urinary tract infection Qualifiers: Urinary tract infection type: acute cystitis Hematuria presence: without hematuria Qualified Code(s): N30.00 - Acute cystitis without hematuria (3) Community acquired pneumonia Qualifiers: Laterality: left Lung location: lower lobe of lung Qualified Code(s): J18.1 - Lobar pneumonia, unspecified organism
[2018-07-17] MEDS: Enoxaparin Inj 40 MG/0.4 ML Syringe SQ SCH (13:58)
[2018-07-17] MEDS: Benzonatate 100 MG Capsule PO PRN (21:39)
[2018-07-17 23:07] VITALS: O2SAT 99
[2018-07-18] MEDS ORDERED: ceFAZolin 2 GM Premix Inj 2 GM/100 ML BAG IV.SIG SCH (04:00)
[2018-07-18] MEDS: LORazepam 0.5 MG Tablet PO PRN ×2 (04:09→10:03)
[2018-07-18 07:41] VITALS: BP 121/59; RESP 20; TEMP 97.4
[2018-07-18 08:01] VITALS: PULSE 86
[2018-07-18] MEDS: Gabapentin 300 MG Capsule PO SCH (10:03)
[2018-07-18] MEDS: Lactobacillus Acidophilus/L. Spores Tablet PO SCH (10:03)
[2018-07-18] MEDS: Ferrous Sulfate 325 MG Tablet PO SCH (10:04)
[2018-07-18] MEDS: Sodium Chloride 0.9% 2 ML Flush BID IV.FLUSH SCH (10:04)
--- NOTE | 2018-07-18 13:13 | P.DS ---
Date of admission: 07/06/18 10:55 Primary care physician: No Primary Care Physician Brief History from admission: HPI as documented by the admitting physician: Mrs. Rapp is a 28-year-old female. She has a past history of IV drug abuse and a previous history of infective endocarditis. She came in secondary to pain in her joints. When I see her in the ER she is lethargic and provides no significant history. She is arousable and has a gag reflex. She has been found to have a urinary tract infection and pneumonia. She meets sepsis criteria. Due to her history of IV drug abuse and prior history of infective endocarditis, Suspicion for infective endocarditis should be present. No other complaints when seen. Patient update on day of discharge: I was notified the patient walked out of the hospital. She left AMA. DS: Diagnosis - Discharge Diagnosis (1) Sepsis Status: Resolved (2) Urinary tract infection Status: Ruled-out (3) Community acquired pneumonia Status: Resolved DS: Summary Hospital Course: 28-year-old F admitted secondary to community acquired pneumonia, UTI, and sepsis with a history of IV drug abuse and infective endocarditis. Patient was admitted and undergoing treatment with IV antibiotics for persistent endocarditis. She left the hospital AGAINST MEDICAL ADVICE. Treatment course per the last progress note as noted below. 1. Infective Endocarditis/Bacteremia Recently treated for tricuspid endocarditis but did not complete outpatient treatment as she had her PICC line removed. Repeat echo demonstrates persistent endocarditis Continue Ancef IV, will need IP txt for 6wks, patient has a high risk of continued deterioration Appreciate Infectious Disease assistance with management Continue Ancef IV stared on 07/09 (needs 6wk txt due to infective endocarditis) Unfortunately the patient left AMA. Bld Cx x4 from 07/06, +MSSA Rpt Bld Cx from 07/09, NG at 5 days x4 Urine Cx from 07/06, NG at 48hrs, final Appreciate ID assistance with management 2. Opioid Withdrawal/Chronic Back Pain VSS, no active sx of WD UDS +opiates Hx of active Heroin use Percocet is slowly being weaned off. Discussed with the patient the goal is to completely wean her off all Narcotics and Benzo. Discontinued Percocet. Cont. Gabapentin, increase the dose Patient was caught using needles from the sharps container, details per Dr. Jackman note on 07/12 3. Community Acquired Pneumonia/Sepsis, resolved CXR indicative of pneumonia on admission s/p txt with Ancef (still on ABX due to endocarditis) 4. Anemia, iron deficiency Diagnosed per iron studies s/p transfusion for Hgb 6.8 on 07/08 H&H stable. Follow as needed. Cont. FeSulfate - Time Spent with Patient Total time spent providing and/or coordinating discharge services: Less than 30 minutes - Quality: VTE Deep Vein Thrombosis/Pulmonary Embolism Present on Admission: No Exam Vital signs: Vital Signs 07/17/18 15:41 07/17/18 20:00 07/18/18 00:00 Temperature 97.9 F 98.2 F 97.7 F Pulse Rate 73 91 H 91 H Respiratory Rate 18 18 18 Blood Pressure 110/64 123/67 123/63 Pulse Oximetry 100 99 99 07/18/18 07:40 07/18/18 07:56 Temperature 97.4 F L Pulse Rate 95 H 86 Respiratory Rate 20 Blood Pressure 121/59 L Pulse Oximetry 99 Intake & Output 07/17/18 07/18/18 07/18/18 18:59 06:59 18:59 Intake Total 290 / 290 150 / 150 Balance 290 / 290 150 / 150 Intake: IV 50 / 50 150 / 150 Ancef 2 GM Premix Inj 2 gm In 100 / 100 100 ml @ 200 mls/hr IV.SIG Q8H JASSON Rx#:[id number] Ancef 2 GM Premix Inj 2 gm In 50 / 50 50 / 50 50 ml @ 100 mls/hr IV.SIG Q8H JASSON Rx#:[id number] Oral 240 / 240 Other: Date of Last Bowel Movement 07/17/18 07/16/18 07/18/18 Narrative: Patient left AMA. Results Procedures completed during hospitalization: None - Impressions ITS Impressions Chest X-Ray 07/06/18 07:24 CONCLUSION: 1. Patchy left mid to lower lung zone airspace consolidation concerning for pneumonia history of fever. Discharge Plan - Discharge Disposition Patient Disposition: Against Medical Advice - Discharge Condition Condition: Stable - Discharge Order Discharge Orders: AMA Discharge (Routine); Ordered 07/18/18 Ordered By: Rey Peralta - Physicians Team Primary Care Provider: Primary Care Physici,No Attending Provider: Rey Peralta Other Providers: Guillaume Lewis MD ; [employer],Insurance
== END 2018-07-18 11:20 | disposition left against medical advice (07) ==
LOC: NEPE 05:35 → NEDA 10:55 → N05 12:56
PROVIDERS: ADMIT Family Medicine; ATTEND Family Medicine